=== PATIENT | male | born 1945 | race Caucasian/White ===

== ENCOUNTER 2017-11-26 07:02 | Emergency (ER) | payer MEDICARE ==
[~2017-11-26] VITALS: Ht 175.3 cm; Wt 82.6 kg
[~2017-11-26 07:02] MED LIST: ASA81 MG PO; LEVOTHYROXINE112 MCG PO; Z.0.SYNTHROID137 MCG PO
[2017-11-26 07:39] LABS: BASOPHILS % 0.6 % (0.0-1.0); EOSINOPHILS # (AUTO) 0.2 (0.0-0.4); EOSINOPHILS % 3.3 % (0.0-6.0); HEMATOCRIT 44.6 % (38.2-49.6); HEMOGLOBIN 14.9 g/dL (14.0-18.0); LYMPHOCYTES # (AUTO) 1.1 (1.0-3.2); LYMPHOCYTES % 17.4 % (18.0-39.1); MEAN CORPUSCULAR HEMOGLOBIN 28.4 pg (28-32); MEAN CORPUSCULAR HGB CONC 33.4 g/dL (31-35); MONOCYTES # (AUTO) 0.4 (0.2-0.8); MONOCYTES % 6.6 % (4.4-11.3); NEUTROPHILS # (AUTO) 4.5 (2.1-6.9); NEUTROPHILS % 71.2 % (38.7-80.0); PLATELET COUNT 191 x10e3/uL (140-360); RED BLOOD COUNT 5.25 x10e6/uL (4.3-5.7); RED CELL DISTRIBUTION WIDTH 13.6 % (11.7-14.4)
[2017-11-26] MEDS ORDERED: SODIUM CHLORIDE 0.9% 1000ML 1,000 ML IV SCH (07:45)
[2017-11-26] MEDS ORDERED: MECLIZINE HCL 12.5 MG TAB PO ONE (07:45)
[2017-11-26 07:50] LABS: BILIRUBIN,URINE NEGATIVE (NEGATIVE); CLARITY,URINE HAZY (CLEAR); COLOR,URINE YELLOW (YELLOW); KETONES,URINE NEGATIVE (NEGATIVE); LEUKOCYTE ESTERASE ,URINE NEGATIVE (NEGATIVE); NITRITE,URINE NEGATIVE (NEGATIVE); PROTEIN,URINE DIPSTICK NEGATIVE (NEGATIVE); URINE UROBILINOGEN 0.2 mg/dL (0.2 - 1)
[2017-11-26 08:13] LABS: EPITHELIAL CELLS,URINE RARE /LPF
[2017-11-26 08:20] LABS: ALANINE AMINOTRANSFERASE 14 IU/L (0-55); ALBUMIN 4.1 g/dL (3.5-5.0); ALBUMIN/GLOBULIN RATIO 1.3 (0.8-2.0); ALKALINE PHOSPHATASE 104 IU/L (40-150); ANION GAP 14.9 mmol/L (8-16); BLOOD UREA NITROGEN 19 mg/dL (7-26); BUN/CREATININE RATIO 22 (6-25); CALCIUM 9.8 mg/dL (8.4-10.2); CARBON DIOXIDE 25 mmol/L (22-29); CHLORIDE 104 mmol/L (98-107); CREATINE KINASE 38 IU/L (30-200); CREATININE, SERUM 0.87 mg/dL (0.72-1.25); EST GLOMERULAR FILTRATION RATE > 60 ML/MIN (60-); GLUCOSE 128 mg/dL (74-118); POTASSIUM 3.9 mmol/L (3.5-5.1); SODIUM 140 mmol/L (136-145)
--- NOTE | 2017-11-26 08:29 | Diagnostic Imaging Report ---
Exam: Head CT without contrast History: Trauma, fall, dizziness Comparison studies: Multiple prior head CTs which date to 11/03/2016, most recent head CT 11/03/2017. Technique: Axial images were obtained from the skull base to the vertex. Coronal and sagittal images reconstructed from the axial data. Dose modulation, iterative reconstruction, and/or weight based adjustment of the mA/kV was utilized to reduce the radiation dose to as low as reasonably achievable. Radiation dose: Total DLP: 921 mGy*cm. Estimated effective dose: DLP x 0.015 Intravenous contrast: None Findings: Scalp: No abnormalities. Bones: No fractures, blastic or lytic lesions. Brain sulci: Mildly prominent. Ventricles: Mild compensatory dilatation. No hydrocephalus. Extra-axial spaces: No masses, no fluid collection. Parenchyma: No mass, acute hemorrhage or acute or chronic cortical vascular insults. A few subtle hypodensities in the supratentorial white matter are nonspecific but may reflect chronic microvascular ischemic changes. Sellar/suprasellar region: No abnormalities. Craniocervical junction: Patent foramen magnum. No Chiari one malformation. Incidental findings: After cirrhotic calcifications in the carotid siphons and left intradural vertebral artery.. IMPRESSION: No acute abnormalities. No changes from the previous head CT of 11/03/2017. Chronic findings: 1. Mild generalized volume loss. 2. Mild microvascular ischemic changes. Signed by: Dr. Beto Cagle M.D. on 11/26/2017 8:26 AM
--- NOTE | 2017-11-26 08:31 | Diagnostic Imaging Report ---
PROCEDURE: CHEST SINGLE (PORTABLE) COMPARISON: The 11/03/2017 chest x-ray INDICATIONS: DIZZINESS FINDINGS: LUNGS: No consolidations or edema. PLEURA: No effusions or pneumothorax. HEART \T\ MEDIASTINUM: The heart is within normal size-limits. Prominent superior mediastinum unchanged. Tortuous thoracic aorta. BONES \T\ SOFT TISSUES: No acute findings. CONCLUSION: No acute thoracic abnormality. Ankur Bullock D.O. Dictated by: Ankur Bullock D.O. on 11/26/2017 at 8:38 Electronically approved by: Ankur Bullock D.O. on 11/26/2017 at 8:38
[2017-11-26 08:57] VITALS: BP 163/85
[2017-11-26] MEDS ORDERED: CLONIDINE HCL 0.1 MG TAB PO ONE (09:00)
== END 2017-11-26 09:34 | disposition home or self-care (01) ==
LOC: ER 07:02
DX: R42 Dizziness and giddiness (principal); H81.11 Benign paroxysmal vertigo, right ear
CPT/HCPCS: 36415; 70450; 71045; 80053; 81001; 82550; 82553; 82948; 84484; 85025; 93005; 99283; J7030

== ENCOUNTER 2018-07-10 12:06 | Emergency (ER) | payer MEDICARE ==
[~2018-07-10] VITALS: Ht 175.3 cm; Wt 82.6 kg
--- NOTE | 2018-07-10 13:18 | Diagnostic Imaging Report ---
EXAMINATION: CHEST 2 VIEWS INDICATION: Cough ^COUGH ^[id number] ^[id number] COMPARISON: None FINDINGS: PA and lateral views TUBES and LINES: Dual-lead pacemaker wires terminate in the right atrium and right ventricle. LUNGS: Diffuse hyperinflation suggestive of COPD. There is no evidence of pneumonia or pulmonary edema. PLEURA: No pleural effusion or pneumothorax. HEART AND MEDIASTINUM: The cardiomediastinal silhouette is unremarkable. The heart is normal in size. The aorta is tortuous. BONES AND SOFT TISSUES: No focal osseous lesions. Soft tissues are unremarkable. UPPER ABDOMEN: No free air under the diaphragm. Cholecystectomy clips in the right upper quadrant. IMPRESSION: Pulmonary hyperinflation suggestive of COPD. No acute cardiopulmonary process. Signed by: Dr. Lara Alvares MD on 07/10/2018 1:15 PM
[2018-07-10] MEDS ORDERED: ALBUTEROL/IPRATROPIUM 3 ML NEB NEB ONE (13:30)
--- NOTE | 2018-07-10 13:40 | NUR ---
PATIENT RECEIVING BREATHING TX
== END 2018-07-10 14:19 | disposition home or self-care (01) ==
LOC: ER 12:06
DX: R05 Cough (principal); J30.1 Allergic rhinitis due to pollen; J00 Acute nasopharyngitis [common cold]; E03.9 Hypothyroidism, unspecified; Z85.46 Personal history of malignant neoplasm of prostate
CPT/HCPCS: 71046; 94640; 99283

== ENCOUNTER 2018-10-05 19:12 | Emergency (ER) | payer MEDICARE ==
[~2018-10-05] VITALS: Ht 175.3 cm; Wt 82.6 kg
[2018-10-05] MEDS ORDERED: CITRATE OF MAGNESIA 300ML BOTTLE ONE (20:11)
[2018-10-05] MEDS ORDERED: LACTULOSE SYRUP 20 GM/30 ML UDC ONE (20:11)
[2018-10-05] MEDS ORDERED: LACTULOSE SYRUP 20 GM/30 ML UDC PO ONE (20:15)
[2018-10-05] MEDS ORDERED: CITRATE OF MAGNESIA 300ML BOTTLE PO ONE (20:15)
--- NOTE | 2018-10-05 22:19 | Diagnostic Imaging Report ---
EXAM: ABDOMEN-1VIEW (KUB), DATE: 10/05/2018 8:04 PM INDICATION: Constipation. COMPARISON: None FINDINGS: LINES/TUBES: None. Right atrial and right ventricular pacemaker leads. BOWEL PATTERN: No evidence for obstruction. Moderate volume of stool within the colon. SOFT TISSUES: Cholecystectomy clips with dropped clip in the pelvis. LUNG BASES: Mild patchy density in the left lung base may represent atelectasis versus pneumonia in the proper clinical setting. BONES: Multilevel degenerative changes of the lumbar spine. IMPRESSION: Moderate volume of stool within the colon. Nonobstructive bowel gas pattern. Left basilar atelectasis may represent atelectasis, scarring versus less likely pneumonia in the proper clinical setting. Signed by: Dr. Pooja Salcedo M.D. on 10/05/2018 10:15 PM
[2018-10-05 22:55] VITALS: BP 126/72
== END 2018-10-05 22:56 | disposition home or self-care (01) ==
LOC: ER 19:12
DX: K59.00 Constipation, unspecified (principal); I10 Essential (primary) hypertension; J44.9 Chronic obstructive pulmonary disease, unspecified; E03.9 Hypothyroidism, unspecified; Z95.810 Presence of automatic (implantable) cardiac defibrillator; Z79.82 Long term (current) use of aspirin; Z85.46 Personal history of malignant neoplasm of prostate
CPT/HCPCS: 74018; 99283

== ENCOUNTER 2019-01-31 09:20 | Observation (INO) | payer MEDICARE ==
[~2019-01-31] VITALS: Ht 175.3 cm; Wt 82.2 kg
[2019-01-31] MEDS ORDERED: SODIUM CHLORIDE 0.9% 500ML 500 ML IV ONE (09:45)
[2019-01-31 10:17] LABS: BASOPHILS # (AUTO) 0.1 (0.0-0.1); BASOPHILS % 0.8 % (0.0-1.0); EOSINOPHILS # (AUTO) 0.2 (0.0-0.4); EOSINOPHILS % 2.3 % (0.0-6.0); HEMATOCRIT 46.5 % (38.2-49.6); HEMOGLOBIN 15.5 g/dL (14.0-18.0); LYMPHOCYTES # (AUTO) 1.2 (1.0-3.2); LYMPHOCYTES % 15.7 % (18.0-39.1); MEAN CORPUSCULAR HEMOGLOBIN 28.4 pg (28-32); MEAN CORPUSCULAR HGB CONC 33.3 g/dL (31-35); MEAN CORPUSCULAR VOLUME 85.2 fL (81-99); MONOCYTES # (AUTO) 0.4 (0.2-0.8); MONOCYTES % 5.3 % (4.4-11.3); NEUTROPHILS # (AUTO) 5.7 (2.1-6.9); NEUTROPHILS % 75.5 % (38.7-80.0); PLATELET COUNT 244 x10e3/uL (140-360); RED BLOOD COUNT 5.46 x10e6/uL (4.3-5.7)
[2019-01-31 10:24] LABS: BILIRUBIN,URINE NEGATIVE (NEGATIVE); CLARITY,URINE CLEAR (CLEAR); COLOR,URINE YELLOW (YELLOW); KETONES,URINE NEGATIVE (NEGATIVE); LEUKOCYTE ESTERASE ,URINE NEGATIVE (NEGATIVE); NITRITE,URINE NEGATIVE (NEGATIVE); PROTEIN,URINE DIPSTICK NEGATIVE (NEGATIVE); URINE UROBILINOGEN 1 mg/dL (0.2 - 1)
--- NOTE | 2019-01-31 10:29 | Diagnostic Imaging Report ---
EXAM: CHEST SINGLE (PORTABLE) DATE: 01/31/2019 9:38 AM INDICATION: Syncope COMPARISON: 07/10/2018 FINDINGS: Dual lead left-sided pacing device identified in stable position. The trachea is midline. The lungs are symmetrically expanded without evidence for large focal consolidation, pneumothorax, or significant pleural effusion. The cardiomediastinal silhouette and pulmonary vasculature are within normal limits. No acute osseous abnormality is identified. The surrounding soft tissues are unremarkable. IMPRESSION: No acute cardiopulmonary process identified. Signed by: Dr. Aj Matias MD on 01/31/2019 10:25 AM
[2019-01-31 10:33] LABS: BACTERIA,URINE RARE /HPF; EPITHELIAL CELLS,URINE FEW /LPF; RBC,URINE 0-5 /HPF (0-5); WBC,URINE (MAN) 0-5 /HPF (0-5)
[2019-01-31 10:44] LABS: ALANINE AMINOTRANSFERASE 13 IU/L (0-55); ALBUMIN 4.5 g/dL (3.5-5.0); ALBUMIN/GLOBULIN RATIO 1.4 (0.8-2.0); ALKALINE PHOSPHATASE 97 IU/L (40-150); ANION GAP 15.2 mmol/L (8-16); BLOOD UREA NITROGEN 22 mg/dL (7-26); BUN/CREATININE RATIO 23 (6-25); CALCIUM 10.1 mg/dL (8.4-10.2); CARBON DIOXIDE 27 mmol/L (22-29); CHLORIDE 98 mmol/L (98-107); CREATINE KINASE 32 IU/L (30-200); CREATININE, SERUM 0.97 mg/dL (0.72-1.25); EST GLOMERULAR FILTRATION RATE > 60 ML/MIN (60-); GLUCOSE 113 mg/dL (74-118); MAGNESIUM 1.9 MG/DL (1.3-2.1); POTASSIUM 4.2 mmol/L (3.5-5.1); SODIUM 136 mmol/L (136-145)
[2019-01-31 11:04] LABS: THYROID STIMULATING HORMONE 2.487 uIU/mL (0.350-4.940)
[2019-01-31 11:06] LABS: INR 0.97; PROTHROMBIN TIME 13.4 seconds (11.9-14.5)
[2019-01-31 11:07] LABS: PARTIAL THROMBOPLASTIN TIME 33.1 seconds (23.8-35.5)
--- NOTE | 2019-01-31 11:19 | Diagnostic Imaging Report ---
CT BRAIN WO HISTORY: Syncope COMPARISON: Head CT 11/26/2017 Technique: Noncontrast axial scans were obtained from skull base to the vertex. Coronal and sagittal reconstructions obtained from the axial data. One or more of the following dose reduction techniques were used: Automated exposure control, adjustment of the mA and/or kV according to patient size, and/or utilization of iterative reconstruction technique. DISCUSSION: Scalp/Skull: Unremarkable. Brain sulci: Mildly prominent. Ventricles: Compensatory dilatation. Extra-axial spaces: No masses or fluid collections. Carotid and vertebral artery calcifications are present. Parenchyma: Mild bilateral deep white matter hypodensity is likely chronic microvascular ischemic change. Otherwise, no masses, hemorrhage, or large vascular territory acute infarct. Dural sinuses: No abnormal densities. Sellar/Suprasellar region: Intact. Skull base: Intact. Incidental findings: Minimal bilateral ethmoid air cell and left sphenoid sinus mucosal thickening. IMPRESSION: 1. No acute intracranial abnormalities. 2. Mild supratentorial chronic microvascular ischemic change. Mild generalized cerebral volume loss. Signed by: Dr. Jamel Zimmerman M.D. on 01/31/2019 11:16 AM
[2019-01-31] MEDS ORDERED: ONDANSETRON HCL INJ 2MG/ML 2ML 2 MG/ML VIAL IV PRN (11:30)
--- NOTE | 2019-01-31 11:56 | NUR ---
Pt sitting up in bed. RR even and unlabored. NAD noted. Vitals stable. pt on NIBP, pulse ox and cardiac monitoring. Bed locked lowest position. Call light in reach. Will continue to monitor.
[2019-01-31 13:14] LABS: CREATINE KINASE MB 2.1 ng/mL (0-5.0)
[2019-01-31] MEDS ORDERED: IOPAMIDOL 370 MG/ML 200 ML INFUS..BTL INJ ONE ×2 (15:33→18:28)
[2019-01-31] MEDS ORDERED: SODIUM CHLORIDE 0.9% 100 ML ONE ×2 (15:33→18:28)
[2019-01-31 16:00] VITALS: BP 183/89
--- NOTE | 2019-01-31 16:26 | NUR ---
RECEIVED PT FROM THE ER VIA WHEELCHAIR, NO S/S OF DISTRESS. PT ORIENTED TO ROOM AND CALL LIGHT, INSTRUCTED PT TO CALL RN FOR HELP, PT VERBALIZED UNDERSTANDING.
[2019-01-31 17:12] VITALS: BP 183/89
--- NOTE | 2019-01-31 17:25 | Diagnostic Imaging Report ---
History:Syncope Comparison studies:No prior available vascular imaging of the head or neck available for comparison. Technique: Axial images were obtained from the thoracic inlet. Coronal and sagittal images reconstructed from the axial data. Additional multiplanar MIP and volume rendered 3-D images of the [place] and carotid bulbs were reformatted from the axial source data. Dose modulation, iterative reconstruction, and/or weight based adjustment of the mA/kV was utilized to reduce the radiation dose to as low as reasonably achievable. Intravenous contrast: 100 cc of Isovue-370. Findings: Neck CTA: If present, stenosis is calculated utilizing the NASCET method which calculates the degree of stenosis with reference to the normal lumen of the carotid artery distal to the stenosis. Aortic arch and great vessels. Patent, no stenosis. Common carotid arteries: Patent, no abnormalities. Carotid bulbs: Mild calcified and soft plaque bilaterally which result in no (0%) stenosis by NASCET criteria. Internal carotid arteries: Patent, no stenosis. Mild nonstenotic calcified plaque on the right. Vertebral arteries: Patent bilaterally. Right vertebral artery is hypoplastic. Dominant left vertebral artery arises directly off the aortic arch. Intracranial CTA: No aneurysm or arterial-vascular malformation identified. Anterior circulation: Internal carotid arteries: Patent, no stenosis. Minimal nonstenotic calcified atherosclerosis, better visualized on the prior noncontrast head CT. Anterior cerebral arteries: Patent, no proximal branch occlusion or stenosis. Middle cerebral arteries: Patent, no proximal branch occlusion or stenosis. Posterior circulation: Vertebral arteries: Hypoplastic right vertebral artery is not well-visualized beyond its dural insertion. Patent left intradural V4 segment which contains minimal nonstenotic calcified atherosclerosis. Basilar artery: Patent, no abnormalities. Posterior cerebral arteries: Patent, no proximal branch occlusion or stenosis. Anatomical variants: Acom: Patent. Posterior cerebral arteries: Hypoplastic right P1 segment with patent right posterior commuting indicating artery. Left posterior commuting indicating artery is not well-visualized. Vertebral arteries: Dominant left vertebral artery with hypoplastic right vertebral artery which essentially terminates at the V3-V4 junction. Included spine: Multilevel degenerative changes in the cervical and included thoracic spine. Contiguous anterior marginal bridging osteophytes in the thoracic spine in configuration which can be seen with diffuse idiopathic skeletal hyperostosis (DISH). Mild canal stenosis at C4-C5 due to a disc bulge and mild canal stenosis at C5-C6 and C6-C7 due to disc osteophyte complexes. Varying degrees of mild to moderate multilevel foraminal stenosis in the cervical spine due to uncovertebral facet arthrosis. Incidental findings: Mild mucosal thickening or small fluid in the left sphenoid sinus and mild mucosal thickening in the right maxillary sinus. Multiple absent teeth with multiple dental fillings, prior root canals, right medial maxillary sinus as well as multiple dental care is with multifocal periodontal disease. IMPRESSION: Neck and intracranial CTA: 1. No major branch occlusion or stenosis. 2. Mild scattered atherosclerosis as described without significant stenosis. No (0%) stenosis at the carotid bulbs. 3. Anatomical variants as described which include hypoplastic right vertebral artery. Signed by: Dr. Beto Cagle M.D. on 01/31/2019 5:22 PM
[2019-01-31 19:15] VITALS: BP 141/75
--- NOTE | 2019-01-31 19:15 | NUR ---
patient received awake, alert, lying quietly in bed. no c/o pain noted. pm assessment complete. patient instructed to call for assistance when needed.
[2019-01-31 20:00] VITALS: BP 141/75
[2019-01-31 22:01] LABS: CREATINE KINASE MB 2.1 ng/mL (0-5.0)
--- NOTE | 2019-01-31 23:44 | Consultation ---
DATE OF CONSULTATION: 01/31/2019 Cardiac Consultation REASON FOR THE CONSULTATION: Near syncope. HISTORY OF PRESENT ILLNESS: This 73-year-old gentleman who is known with sick sinus syndrome status post dual pacemaker implantation on 12/16/2017 for bradycardia and near syncope and sick sinus syndrome. Since he had his pacemaker, he is doing extremely well with no symptoms at all. Recently when he had three episodes of "I am feeling, I am going to pass out." He was so alarmed about it. He came to the emergency room admitted for further management. Cardiac consultation is obtained. The patient denied having any seizure activity. He feel his "I am going to pass out." He denied having any chest pain. He denied having any shortness of breath, although he does have episodes "like reactive airway disease suddenly, but not with these three described episodes. There is no orthopnea, no paroxysmal nocturnal dyspnea. There is no palpitation. HOME MEDICATIONS: Levothyroxine 137 mcg, ProAir. ALLERGIES: NONE. PAST MEDICAL AND SURGICAL HISTORY: 1. Sick sinus syndrome status post dual pacemaker implantation in 12/16/2017. 2. Activity and diet controlled. 3. Diabetes mellitus, diet controlled. 4. Prostate problem. 5. Hypothyroidism. 6. Reactive airway disease. 7. History of prostate cancer. 8. Hand arthritis. 9. Radical prostatectomy in September 2007. 10. Cholecystectomy in 2002. 11. Right knee surgery. 12. Left knee surgery. 13. L4-L5 laminectomy. 14. Laparoscopic surgery in 2012. SOCIAL HISTORY: He has never smoked. He does not drink alcohol. He is retired school attendance secretary. He is . FAMILY HISTORY: Mother at age 70 with diabetes mellitus complication. Father at age 74 with coronary artery disease and myocardial infarction. One brother and one sister. He lost a brother with diabetes mellitus complication. No children. REVIEW OF SYSTEMS: GENERAL: No fever, no chills. HEENT: No vertigo. No headache. No vision problem. PULMONARY/CARDIAC: No active symptoms except with episodes where he will have shortness of breath. GI: No hematemesis. No melena. : No hematuria. No dysuria. MUSCULOSKELETAL: No aches. No pain. PERIPHERAL VASCULAR: None. SKIN: No skin rashes. NEUROLOGY: About three episodes of near syncope, tremor worse of the left arm. PHYSICAL EXAMINATION: VITAL SIGNS: Height 5 feet 9 inches, weight of 182 pounds, blood pressure 140/80, heart rate of 60, respiratory rate of 18. HEENT: Pupils are equal, reactive. NECK: No elevation of jugular venous pulsation. No bruit. CHEST: Clear to auscultation and percussion. HEART: PMI 5th left intercostal space. Normal first and second heart sounds. ABDOMEN: Soft with good bowel sounds. EXTREMITIES: No cyanosis, no clubbing, no edema. NEUROLOGIC: Only tremor noted more pronounced on the left upper extremity. LABORATORY DATA: Electrolytes were within normal. Sodium of 136, potassium 4.2, BUN 22, creatinine 0.97. White blood cell count of 7.5, hemoglobin of 15.5, hematocrit 46%, and platelet count of 244,000. EKG showing pacer activity. Chest CT had no acute changes. Pacemaker check showed no arrhythmias probably working pacemaker. IMPRESSION AND PLAN: 1. Near syncope. 2. Hypertension with exercise and diet controlled. 3. Hypercholesteremia. 4. Borderline diabetes mellitus. 5. Hypothyroidism. 6. Pacemaker implantation. 7. Sick sinus syndrome status post dual pacemaker implantation. From a cardiac point of view we checked already his pacemaker, which is negative. The patient will be admitted. He will be on telemetry. Neurological consultation will be beneficial. CT angiogram of the head and neck is ordered. We will follow the patient's progression with you and would like to thank you for the kind referral. MD DAIJA Goodman/KRISTI /[id number]
[2019-02-01] VITALS: BP 102/67
[2019-02-01 04:00] VITALS: BP 134/81
[2019-02-01 06:10] LABS: BASOPHILS # (AUTO) 0.1 (0.0-0.1); BASOPHILS % 0.9 % (0.0-1.0); EOSINOPHILS # (AUTO) 0.2 (0.0-0.4); HEMATOCRIT 44.7 % (38.2-49.6); HEMOGLOBIN 14.9 g/dL (14.0-18.0); LYMPHOCYTES # (AUTO) 1.3 (1.0-3.2); LYMPHOCYTES % 23.1 % (18.0-39.1); MEAN CORPUSCULAR HEMOGLOBIN 28.3 pg (28-32); MEAN CORPUSCULAR HGB CONC 33.3 g/dL (31-35); MONOCYTES # (AUTO) 0.4 (0.2-0.8); MONOCYTES % 6.6 % (4.4-11.3); NEUTROPHILS # (AUTO) 3.8 (2.1-6.9); NEUTROPHILS % 64.9 % (38.7-80.0); PLATELET COUNT 183 x10e3/uL (140-360); RED BLOOD COUNT 5.26 x10e6/uL (4.3-5.7); RED CELL DISTRIBUTION WIDTH 13.8 % (11.7-14.4)
[2019-02-01 06:35] LABS: ALANINE AMINOTRANSFERASE 12 IU/L (0-55); ALBUMIN 3.8 g/dL (3.5-5.0); ALBUMIN/GLOBULIN RATIO 1.2 (0.8-2.0); ALKALINE PHOSPHATASE 81 IU/L (40-150); ANION GAP 12.2 mmol/L (8-16); BLOOD UREA NITROGEN 18 mg/dL (7-26); BUN/CREATININE RATIO 20 (6-25); CALCIUM 9.7 mg/dL (8.4-10.2); CARBON DIOXIDE 26 mmol/L (22-29); CHLORIDE 100 mmol/L (98-107); CHOL/HDL RATIO 5.8 (3.9-4.7); CHOLESTEROL 168 MD/DL (0-199); CREATININE, SERUM 0.92 mg/dL (0.72-1.25); EST GLOMERULAR FILTRATION RATE > 60 ML/MIN (60-); GLUCOSE 120 mg/dL (74-118); HDL CHOLESTEROL 29 MG/DL (40-60); LDL CHOLESTEROL 121 MG/DL (60-130); POTASSIUM 4.2 mmol/L (3.5-5.1); SODIUM 134 mmol/L (136-145); TRIGLYCERIDES 90 MG/DL (0-149)
[2019-02-01 07:07] LABS: CREATINE KINASE MB 3.2 ng/mL (0-5.0)
[2019-02-01 08:32] VITALS: BP 134/81
[2019-02-01 11:14] VITALS: BP 112/73
[2019-02-01] MEDS ORDERED: MECLIZINE HCL 12.5 MG TAB PO SCH (12:30)
[2019-02-01] MEDS ORDERED: MECLIZINE HCL12.5 MG PO (14:22)
--- NOTE | 2019-02-01 14:49 | NUR ---
Patient discharged home, Dr Castrejon had rounds cleared patient to go home, IV canula removed with tip intact, no ss of infiltration, tele box returned. prescription given, denies any pain, No C/O Dizziness or SOB, Refused wheelchair, escorted to walk up to his car.
--- NOTE | 2019-02-02 09:32 | Discharge Summary ---
CONSULTING PHYSICIAN: Shmuel Castrejon M.D. CHIEF COMPLAINT: Near syncope. HOSPITAL COURSE: This is a 73-year-old male with sick sinus syndrome, status post dual pacemaker implantation on 12/16/2017 for bradycardia, near syncope, and sick sinus syndrome. Since the pacemaker placement, the patient has been doing well with no acute issues. Most recently, the patient started developing dizziness, which for the past 1 week he had three different episodes, but never lost consciousness. The patient also reported several years ago he got evaluated for vertigo and has diagnosed with benign paroxysmal positional vertigo and has taken meclizine. The patient got evaluated by Cardiology and his pacemaker was checked, which was negative. His CT angiogram of the head and the neck are negative and CT of the brain is negative. The patient also got evaluated by Therapy and he is ambulatory with requiring no assistive device. His vital signs; temperature is 96.3, heart rate is 65, blood pressure is 112/73, respiratory rate is 18, and oxygen saturation is 99%. MEDICATIONS: We will resume the home medications and added meclizine 12.5 mg p.o. daily as needed for dizziness. LABORATORY DATA: Sodium is 134, potassium is 4.2, chloride is 100, CO2 is 26, BUN 18, creatinine 0.92, and glucose is 120. WBC is 5.79, hemoglobin is 14.9, hematocrit is 44.7, and platelet is 183. PHYSICAL EXAMINATION: ENT: Pupils equal, round, reactive to light. NECK: Supple. CHEST: Clear to auscultation, normal symmetry and expansion. CARDIAC: Regular rate and rhythm. ABDOMEN: Nontender, soft, normal bowel sounds. EXTREMITIES: No edema. SKIN: No rash. NEUROLOGIC: Cranial nerves intact. Alert and oriented x3. PSYCHIATRIC: Anxious to go home. DIAGNOSES: 1. Near syncope. We will send the patient on meclizine and advice to follow up with Neurology as an outpatient. 2. Hypertension, not currently on any medication. 3. Hypercholesterolemia. 4. Hypothyroidism. 5. Pacemaker implantation. Upon discharge, the patient is stable, ambulatory, alert and oriented x3. Advice to follow up with primary care physician in 1 week and Neurology as outpatient. Dictated by Steph Mcmahon NP MD LIAM Cordova/KRISTI /[id number]
== END 2019-02-01 14:35 | disposition home or self-care (01) ==
LOC: ER 09:20 → ERHOLD 11:19 → MED/SURG3 16:43
PROVIDERS: ADMIT Internal Medicine; ATTEND Internal Medicine
DX: R55 Syncope and collapse (principal); I10 Essential (primary) hypertension; J44.9 Chronic obstructive pulmonary disease, unspecified; E03.9 Hypothyroidism, unspecified; Z85.46 Personal history of malignant neoplasm of prostate; Z82.49 Family history of ischemic heart disease and other diseases of the circulatory system; E78.00 Pure hypercholesterolemia, unspecified; E11.9 Type 2 diabetes mellitus without complications; I49.5 Sick sinus syndrome; Z95.810 Presence of automatic (implantable) cardiac defibrillator
CPT/HCPCS: 36415 ×2; 70450; 70496; 70498; 71045; 80053 ×2; 80061; 81001; 82550 ×2; 82553 ×2; 83735; 83880; 84443; 84484 ×2; 85025 ×2; 85610; 85730; 87086; 93005; 93880; 97161; 99284; G0378 ×2; J7040; J7050; J8597; Q9967

== ENCOUNTER 2019-09-11 08:55 | Emergency (ER) | payer MEDICARE ==
[~2019-09-11] VITALS: Ht 175.3 cm; Wt 84.4 kg
[~2019-09-11 08:55] MED LIST changes: +MECLIZINE HCL12.5 MG PO
--- NOTE | 2019-09-11 09:07 | Emergency Department Note ---
History of Present Illnes History of Present Illness History of Present Illness This is a 74 year old male with 5 week h/o of abdominal distension . Historian: Patient Arrival Mode: Car Onset (how long ago): week(s) (5) Radiation: Reports abdomen Severity: moderate Onset quality: gradual Duration (how long): week(s) (5) Timing of current episode: constant Progression: worsening Chronicity: new Context: Denies recent illness, Denies recent surgery, Denies recent imm obilization, Denies recent travel, Denies trauma/injury, Denies new medications, Denies hx of DVT/PE, Denies non-compliance w/ medications, Denies other Relieving factors: none Exacerbating factors: none Associated symptoms: Reports loss of appetite Treatments prior to arrival: none Past Medical/Family History Physician Review I have reviewed the patient's past medical and family history. Any updates have been documented here. Past Medical History Recent Fever: No Clinical Suspicion of Infectio: No New/Unexplained Change in Ment: No Past Medical History: Hypertension, COPD, Hypothyroidism, Cancer Other Medical History: TINNITIS Past Surgical History: Cholecysctectomy, Pacer/AICD Other Surgery: PROSTECTOMY, LAMINECTOMY (L4-L5), L KNEE ACL REPAIR Social History Smoking Cessation: Never Smoker Alcohol Use: None Any Illegal Drug Use: No Other Last Tetanus: UTD Review of Systems Review of Systems Constitutional: Denies fever EENTM: Reports no symptoms Cardiovascular: Reports no symptoms Respiratory: Reports no symptoms Gastrointestinal: Reports abdominal pain, Reports constipation; Denies nausea, Denies vomiting Genitourinary: Reports no symptoms Musculoskeletal: Reports no symptoms Integumentary: Reports no symptoms Neurological: Reports no symptoms Psychological: Reports no symptoms Endocrine: Reports no symptoms Hematological/Lymphatic: Reports no symptoms Physical Exam Related Data Allergies: Coded Allergies: No Known Allergies (Unverified , 01/31/19) Triage Vital Signs Vital Signs Date Time Temp Pulse Resp B/P (MAP) Pulse Ox O2 Delivery O2 Flow Rate FiO2 09/11/19 09:10 98.2 75 18 164/92 98 Room Air Vital signs reviewed: Yes Physical Exam CONSTITUTIONAL Constitutional: Present well-developed, Present well-nourished HENT HENT: Present normocephalic, Present atraumatic, Present oropharynx clear/moist, Present nose normal HENT L/R: Present left ext ear normal, Present right ext ear normal EYES Eyes: Reports PERRL, Reports conjunctivae normal NECK Neck: Present ROM normal PULMONARY Pulmonary: Present effort normal, Present breath sounds normal CARDIOVASCULAR Cardiovascular: Present regular rhythm, Present heart sounds normal, Present capillary refill normal, Present normal rate GASTROINTESTINAL Abdominal: Present soft, Present nontender, Present distension GENITOURINARY Genitourinary: Present exam deferred SKIN Skin: Present warm, Present dry MUSCULOSKELETAL Musculoskeletal: Present ROM normal NEUROLOGICAL Neurological: Present alert, Present oriented x 3, Present no gross motor or sensory deficits PSYCHOLOGICAL Psychological: Present mood/affect normal, Present judgement normal Results Laboratory Lab results reviewed: Yes Laboratory comments Laboratory Tests Test 09/11/19 09:16 White Blood Count 7.19 x10e3/uL (4.8-10.8) Red Blood Count 5.59 x10e6/uL (4.3-5.7) Hemoglobin 15.6 g/dL (14.0-18.0) Hematocrit 46.5 % (38.2-49.6) Mean Corpuscular Volume 83.2 fL (81-99) Mean Corpuscular Hemoglobin 27.9 pg (28-32) Mean Corpuscular Hemoglobin Concent 33.5 g/dL (31-35) Red Cell Distribution Width 14.0 % (11.7-14.4) Platelet Count 239 x10e3/uL (140-360) Neutrophils (%) (Auto) 70.6 % (38.7-80.0) Lymphocytes (%) (Auto) 19.6 % (18.0-39.1) Monocytes (%) (Auto) 5.7 % (4.4-11.3) Eosinophils (%) (Auto) 2.6 % (0.0-6.0) Basophils (%) (Auto) 0.7 % (0.0-1.0) Neutrophils # (Auto) 5.1 (2.1-6.9) Lymphocytes # (Auto) 1.4 (1.0-3.2) Monocytes # (Auto) 0.4 (0.2-0.8) Eosinophils # (Auto) 0.2 (0.0-0.4) Basophils # (Auto) 0.1 (0.0-0.1) Absolute Immature Granulocyte (auto 0.06 x10e3/uL (0-0.1) Urine Color Yellow (YELLOW) Urine Clarity Clear (CLEAR) Urine pH 5.5 (5 - 7) Urine Specific [place] >=1.030 (1.010-1.025) Urine Protein Negative (NEGATIVE) Urine Glucose (UA) Negative (NEGATIVE) Urine Ketones Negative (NEGATIVE) Urine Blood Negative (NEGATIVE) Urine Nitrite Negative (NEGATIVE) Urine Bilirubin Small (NEGATIVE) Urine Urobilinogen 1 mg/dL (0.2 - 1) Urine Leukocyte Esterase Negative (NEGATIVE) Urine RBC 0-5 /HPF (0-5) Urine WBC 0-5 /HPF (0-5) Urine Epithelial Cells Rare /LPF (NONE) Urine Transitional Epithelial Cells Few (NONE) Urine Bacteria Many /HPF (NONE) Urine Mucus Many (RARE) Sodium Level 139 mmol/L (136-145) Potassium Level 4.2 mmol/L (3.5-5.1) Chloride Level 103 mmol/L (98-107) Carbon Dioxide Level 27 mmol/L (22-29) Anion Gap 13.2 mmol/L (8-16) Blood Urea Nitrogen 19 mg/dL (7-26) Creatinine 0.99 mg/dL (0.72-1.25) Estimat Glomerular Filtration Rate > 60 ML/MIN (60-) BUN/Creatinine Ratio 19 (6-25) Glucose Level 123 mg/dL (74-118) Calcium Level 9.9 mg/dL (8.4-10.2) Total Bilirubin 0.8 mg/dL (0.2-1.2) Aspartate Amino Transf (AST/SGOT) 18 IU/L (5-34) Alanine Aminotransferase (ALT/SGPT) 13 IU/L (0-55) Alkaline Phosphatase 102 IU/L (40-150) Creatine Kinase 45 IU/L (30-200) Creatine Kinase MB 2.90 ng/mL (0-5.0) Troponin I 0.002 ng/mL (0-0.300) B-Type Natriuretic Peptide < 10.0 pg/mL (0-100) Total Protein 7.7 g/dL (6.5-8.1) Albumin 4.3 g/dL (3.5-5.0) Globulin 3.4 g/dL (2.3-3.5) Albumin/Globulin Ratio 1.3 (0.8-2.0) Lipase 15 U/L (8-78) Imaging Imaging results reviewed: Yes Impressions [facility] [address] [address] Patient Name: YADIEL DANGELO MR #: [id number] : 1945 Age/Sex: 74/M Req #: [id number] Adm Physician: Ordered by: STEFANY VÁSQUEZ DO Report #: [id number] Location: ER Room/Bed: Procedure: [id number] CT/CT ABDOMEN/PELVIS W Exam Date: 09/11/19 Exam Time: 1030 REPORT STATUS: Signed EXAM: CT Abdomen and Pelvis WITH intravenous contrast INDICATION: Abdominal pain COMPARISON: None. TECHNIQUE: Abdomen and pelvis were scanned utilizing a multidetector helical scanner from the lung base to the pubic symphysis after administration of IV contrast. Coronal and sagittal reformations were obtained. Routine protocol was performed. Scan was performed during portal venous phase. IV CONTRAST: 100mL of Isovue 370 ORAL CONTRAST: Water RADIATION DOSE: Total DLP: 432 mGy*cm Dose modulation, iterative reconstruction, and/or weight based adjustment of the mA/kV was utilized to reduce the radiation dose to as low as reasonably achievable. FINDINGS: LOWER THORAX: Normal. HEPATOBILIARY: No focal liver lesions. Mild intrahepatic biliary ductal dilation, possibly due to reservoir effect status post cholecystectomy. SPLEEN: No splenomegaly. PANCREAS: No focal masses or ductal dilatation. ADRENALS: No adrenal nodules. KIDNEYS/URETERS: No hydronephrosis, stones, or solid mass lesions. PELVIC ORGANS/BLADDER: Unremarkable. PERITONEUM / RETROPERITONEUM: No free air or fluid. LYMPH NODES: No lymphadenopathy. VESSELS: Unremarkable. GI TRACT: No abnormal bowel thickening. No bowel obstruction. Normal appendix. BONES AND SOFT TISSUES: No acute osseous injury. No suspicious lytic or blastic lesions. Degenerative changes of the visualized spine. IMPRESSION: No acute findings in the abdomen or pelvis. Mild intrahepatic biliary ductal dilation, possibly due to reservoir effect status post cholecystectomy. Signed by: Renzo Stewart MD on 09/11/2019 12:02 PM Dictated By: RENZO STEWART MD 120 Transcribed By: SORAYA on 09/11/19 120 COPY TO: STEFANY VÁSQUEZ DO~ Procedures 12 Lead ECG Interpretation ECG Interpretation : ECG: ECG 1 Plug Grower: Interpreted by ED physician Date: Sep 11, 2019 Time: 09:24 Prior ECG tracings: reviewed Rhythm: sinus rhythm Ectopy: PJC's Rate: normal QRS axis: normal Conduction: 1st degree ST segments normal: Yes T waves normal: Yes Clinical Impression: normal ECG Assessment & Plan Medical Decision Making MDM 74 yom with abdominal pain. CBC, CMP, UA, EKG, and CTS ordered to r/o appendicitis, diverticulitis, UTI, kidney stone, perforated viscus, obstruction, ischemia, biliary pathology, unstable angina, and cancer Assessment & Plan Final Impression: (1) Abdominal pain Depart Disposition: HOME, SELF-FPC Meds Active Scripts Meclizine Hcl (MECLIZINE HCL) 12.5 Mg Tablet, 12.5 MG PO DAILY for 10 Days, #10 TAB Prov:OLI ZAMUDIO NP 02/01/19 Reported Medications Levothyroxine Sodium (LEVOTHYROXINE SODIUM) 112 Mcg Tablet, 150 MCG PO DAILY, #30 TAB 11/15/15 Aspirin (Asa) 81 Mg Tab, 81 MG PO daily 01/08/11 STEFANY VÁSQUEZ DO Sep 11, 2019 09:07
[2019-09-11] MEDS ORDERED: SODIUM CHLORIDE 0.9% 1000ML 1,000 ML IV STA (09:11)
[2019-09-11 09:31] LABS: BASOPHILS # (AUTO) 0.1 (0.0-0.1); BASOPHILS % 0.7 % (0.0-1.0); EOSINOPHILS # (AUTO) 0.2 (0.0-0.4); EOSINOPHILS % 2.6 % (0.0-6.0); HEMATOCRIT 46.5 % (38.2-49.6); HEMOGLOBIN 15.6 g/dL (14.0-18.0); LYMPHOCYTES # (AUTO) 1.4 (1.0-3.2); LYMPHOCYTES % 19.6 % (18.0-39.1); MEAN CORPUSCULAR HEMOGLOBIN 27.9 pg (28-32); MEAN CORPUSCULAR HGB CONC 33.5 g/dL (31-35); MEAN CORPUSCULAR VOLUME 83.2 fL (81-99); MONOCYTES # (AUTO) 0.4 (0.2-0.8); MONOCYTES % 5.7 % (4.4-11.3); NEUTROPHILS # (AUTO) 5.1 (2.1-6.9); NEUTROPHILS % 70.6 % (38.7-80.0); PLATELET COUNT 239 x10e3/uL (140-360); RED BLOOD COUNT 5.59 x10e6/uL (4.3-5.7)
[2019-09-11 09:57] LABS: ALANINE AMINOTRANSFERASE 13 IU/L (0-55); ALBUMIN 4.3 g/dL (3.5-5.0); ALBUMIN/GLOBULIN RATIO 1.3 (0.8-2.0); ALKALINE PHOSPHATASE 102 IU/L (40-150); ANION GAP 13.2 mmol/L (8-16); BLOOD UREA NITROGEN 19 mg/dL (7-26); BUN/CREATININE RATIO 19 (6-25); CALCIUM 9.9 mg/dL (8.4-10.2); CARBON DIOXIDE 27 mmol/L (22-29); CHLORIDE 103 mmol/L (98-107); CREATININE, SERUM 0.99 mg/dL (0.72-1.25); EST GLOMERULAR FILTRATION RATE > 60 ML/MIN (60-); GLUCOSE 123 mg/dL (74-118); POTASSIUM 4.2 mmol/L (3.5-5.1); SODIUM 139 mmol/L (136-145)
[2019-09-11 10:04] LABS: CLARITY,URINE CLEAR (CLEAR); COLOR,URINE YELLOW (YELLOW); LEUKOCYTE ESTERASE ,URINE NEGATIVE (NEGATIVE); NITRITE,URINE NEGATIVE (NEGATIVE); PROTEIN,URINE DIPSTICK NEGATIVE (NEGATIVE)
[2019-09-11 10:05] LABS: BILIRUBIN,URINE SMALL (NEGATIVE); KETONES,URINE NEGATIVE (NEGATIVE); URINE UROBILINOGEN 1 mg/dL (0.2 - 1)
[2019-09-11 10:12] LABS: CREATINE KINASE 45 IU/L (30-200); LIPASE 15 U/L (8-78)
[2019-09-11 10:24] LABS: BACTERIA,URINE MANY /HPF; EPITHELIAL CELLS,URINE RARE /LPF; MUCUS,URINE MANY (RARE); RBC,URINE 0-5 /HPF (0-5); TRANSITIONAL EPI CELLS,URINE FEW; WBC,URINE (MAN) 0-5 /HPF (0-5)
[2019-09-11] MEDS ORDERED: IOPAMIDOL 370 MG/ML 200 ML INFUS..BTL INJ ONE (10:37)
[2019-09-11] MEDS ORDERED: SODIUM CHLORIDE 0.9% 50ML 50 ML ONE (10:37)
--- NOTE | 2019-09-11 12:06 | Diagnostic Imaging Report ---
EXAM: CT Abdomen and Pelvis WITH intravenous contrast INDICATION: Abdominal pain COMPARISON: None. TECHNIQUE: Abdomen and pelvis were scanned utilizing a multidetector helical scanner from the lung base to the pubic symphysis after administration of IV contrast. Coronal and sagittal reformations were obtained. Routine protocol was performed. Scan was performed during portal venous phase. IV CONTRAST: 100mL of Isovue 370 ORAL CONTRAST: Water RADIATION DOSE: Total DLP: 432 mGy*cm Dose modulation, iterative reconstruction, and/or weight based adjustment of the mA/kV was utilized to reduce the radiation dose to as low as reasonably achievable. FINDINGS: LOWER THORAX: Normal. HEPATOBILIARY: No focal liver lesions. Mild intrahepatic biliary ductal dilation, possibly due to reservoir effect status post cholecystectomy. SPLEEN: No splenomegaly. PANCREAS: No focal masses or ductal dilatation. ADRENALS: No adrenal nodules. KIDNEYS/URETERS: No hydronephrosis, stones, or solid mass lesions. PELVIC ORGANS/BLADDER: Unremarkable. PERITONEUM / RETROPERITONEUM: No free air or fluid. LYMPH NODES: No lymphadenopathy. VESSELS: Unremarkable. GI TRACT: No abnormal bowel thickening. No bowel obstruction. Normal appendix. BONES AND SOFT TISSUES: No acute osseous injury. No suspicious lytic or blastic lesions. Degenerative changes of the visualized spine. IMPRESSION: No acute findings in the abdomen or pelvis. Mild intrahepatic biliary ductal dilation, possibly due to reservoir effect status post cholecystectomy. Signed by: Laurel Solomon MD on 09/11/2019 12:02 PM
== END 2019-09-11 12:39 | disposition home or self-care (01) ==
LOC: ER 09:10
DX: R10.9 Unspecified abdominal pain (principal); R14.0 Abdominal distension (gaseous); I10 Essential (primary) hypertension; J44.9 Chronic obstructive pulmonary disease, unspecified; E03.9 Hypothyroidism, unspecified; Z95.810 Presence of automatic (implantable) cardiac defibrillator; Z90.49 Acquired absence of other specified parts of digestive tract
CPT/HCPCS: 36415; 74177; 80053; 81001; 82550; 82553; 83690; 83880; 84484; 85025; 93005; 99283; J7030; Q9967

== ENCOUNTER 2020-01-02 10:23 | Emergency (ER) | payer MEDICARE ==
[~2020-01-02] VITALS: Ht 175.3 cm; Wt 84.4 kg
--- NOTE | 2020-01-02 10:47 | Emergency Department Note ---
History of Present Illnes History of Present Illness Chief Complaint: Laceration History of Present Illness This is a 74 year old male arrived to the ED with concerns of a abras ion over his left forearm after talking closet. Patient states it happened 3 or 4 days ago but is worried about potential infection. . Chief Complaint Comment PATIENT IN FROM HOME WITH COMPLAINTS OF SMALL SKIN TEAR TO LEFT FOREARM. NO BLEEDING NOTED, NO REDNESS OR SWELLING. PATIENT STATES THAT HE IS CONCERNED THAT IT MAY BE GETTING INFECTED. DENIES PAIN AT THIS TIME. PATIENT ALERT AND ORIENTED, RESP EVEN AND NONLABORED, APPEARS IN NO DISTRESS Historian: Patient Arrival Mode: Car Onset (how long ago): day(s) Radiation: Reports non-radiation Severity: mild Onset quality: gradual Duration (how long): day(s) Timing of current episode: intermittent Progression: unchanged Chronicity: new Context: Reports trauma/injury Relieving factors: none Exacerbating factors: none Past Medical/Family History Physician Review I have reviewed the patient's past medical and family history. Any updates have been documented here. Past Medical History Recent Fever: No Clinical Suspicion of Infectio: No New/Unexplained Change in Ment: No Past Medical History: Hypertension, COPD, Hypothyroidism, Cancer Other Medical History: TINNITIS Past Surgical History: Cholecysctectomy, Pacer/AICD Other Surgery: PROSTECTOMY, LAMINECTOMY (L4-L5), L KNEE ACL REPAIR Social History Smoking Cessation: Never Smoker Counseling Performed: No Alcohol Use: None Any Illegal Drug Use: No Physically hurt or threatened: No Other Last Tetanus: UTD Any Pre-Existing Lines (PICC,: No Review of Systems Review of Systems Constitutional: Reports no symptoms EENTM: Reports no symptoms Cardiovascular: Reports no symptoms Respiratory: Reports no symptoms Gastrointestinal: Reports no symptoms Genitourinary: Reports no symptoms Musculoskeletal: Reports no symptoms Integumentary: Reports as per HPI Neurological: Reports no symptoms Psychological: Reports no symptoms Endocrine: Reports no symptoms Hematological/Lymphatic: Reports no symptoms Physical Exam Related Data Allergies: Coded Allergies: No Known Allergies (Unverified , 01/02/20) Triage Vital Signs Vital Signs Date Time Temp Pulse Resp B/P (MAP) Pulse Ox O2 Delivery O2 Flow Rate FiO2 01/02/20 10:30 97.6 71 20 173/91 100 Room Air Vital signs reviewed: Yes Physical Exam CONSTITUTIONAL Constitutional: Present well-developed, Present well-nourished HENT HENT: Present normocephalic, Present atraumatic, Present oropharynx clear/moist, Present nose normal HENT L/R: Present left ext ear normal, Present right ext ear normal EYES Eyes: Reports PERRL, Reports conjunctivae normal NECK Neck: Present ROM normal PULMONARY Pulmonary: Present effort normal, Present breath sounds normal CARDIOVASCULAR Cardiovascular: Present regular rhythm, Present heart sounds normal, Present capillary refill normal, Present normal rate GASTROINTESTINAL Abdominal: Present soft, Present nontender, Present bowel sounds normal GENITOURINARY Genitourinary: Present exam deferred SKIN Skin: Present warm, Present dry, Present other (superficial skin tear noted ov er left forearm, no active bleeding, no discharge, no signs of infection) MUSCULOSKELETAL Musculoskeletal: Present ROM normal NEUROLOGICAL Neurological: Present alert, Present oriented x 3, Present no gross motor or sensory deficits PSYCHOLOGICAL Psychological: Present mood/affect normal, Present judgement normal Assessment & Plan Medical Decision Making MDM 74-year-old male arrives to the ED with superficial skin tear over left forearm, no signs of infection. Dermabond applied patient stable for discharge Assessment & Plan Final Impression: (1) Skin tear of left upper extremity Depart Disposition: HOME, SELF-CARE Last Vital Signs Date Time Temp Pulse Resp B/P (MAP) Pulse Ox O2 Delivery O2 Flow Rate FiO2 01/02/20 10:30 97.6 71 20 173/91 100 Room Air Home Meds Active Scripts Meclizine Hcl (MECLIZINE HCL) 12.5 Mg Tablet, 12.5 MG PO DAILY for 10 Days, #10 TAB Prov:OLI ZAMUDIO NP 02/01/19 Reported Medications Levothyroxine Sodium (LEVOTHYROXINE SODIUM) 112 Mcg Tablet, 150 MCG PO DAILY, #30 TAB 11/15/15 Aspirin (Asa) 81 Mg Tab, 81 MG PO daily 01/08/11 SPENCER DAY DO Jan 02, 2020 10:47
--- OUTSIDE RECORDS SUMMARY | 2020-01-04 19:02 | XMS REPORT | Continuity of Care Document ---
Author Author [facility] t Organization [facility] Address [address] [place] [address] Phone Unavailable Care Team Providers Care [employer] Ranger Name Role Phone MD JUAN FRANCISCO IRFAN PCP STEFANY VÁSQUEZ Attphys Unavailable YADIEL MEDINA Attphys Unavailable Sugar STEELE Attphys Unavailable MANEEVESE, V JAXSON Attphys Unavailable Mar EARL Attphys Unavailable YADIEL MEDINA Admphys Unavailable Payers Payer Name Policy Type Policy Number Effective Date Expiration Date franco Medicare A & B [id number] 2009 00:00:00 [facility] Problems Condition Name Condition Details Condition Category Status Onset Date Resolution Date Last Treatment Date Treating Clinician Comments Source Altered mental status Change in mental status Problem Active [facility] Pre-syncope Near syncope Problem Active [facility] Urinary tract infection Problem Active [facility] Allergies, Adverse Reactions, Alerts Allergy Name Allergy Type Status Severity Reaction(s) Onset Date Inacti ve Date Treating Clinician Comments Source No Known Allergies DA Active U 2017-12-16 00:00:00 [facility] No Known Drug Intolerances DA Active U 2007-10-12 00:00:0 0 [facility] No Known Contrast Allergies DA Active U 2007-10-12 00:00: 00 [facility] No Known Drug Allergies DA Active U 2007-10-12 00:00:00 [facility] No Known Food Allergies DA Active U 2007-10-12 00:00:00 [facility] No Known Other Allergies DA Active U 2007-10-12 00:00:00 [facility] Social History Social Habit Start Date Stop Date Quantity Comments Source Sex Assigned At 1945 00:00:00 1945 00:00:00 Male [facility] Medications Ordered Medication Name Filled Medication Name Start Date Stop Da te Current Medication? Ordering Clinician Indication Dosage Frequency Signature (SIG) Comments Components Source Meclizine Hcl Meclizine Hcl 2019-02-01 13:22:00 Yes 12.5 Daily [facility] Aspirin (Asa) 81 Mg TAB Aspirin (Asa) 81 Mg TAB Yes 81 Daily [facility] Levothyroxine Sodium Levothyroxine Sodium Yes 150 Daily [facility] Levothyroxine Sodium (Synthroid) 137 Mcg TABLET Levoth yroxine Sodium (Synthroid) 137 Mcg TABLET 2015-11-15 00:00:00 No 137 Daily [facility] Vital Signs Vital Name Observation Time Observation Value Comments Source Weight 2019-09-11 09:10:00 186 [lb_av] [facility] BMI (Body Mass Index) 2019-09-11 09:10:00 27.5 kg/m2 [facility] Body Temperature 2019-02-01 10:14:00 96.3 [degF] [facility] Procedures Procedure Date / Time Performed Performing Clinician Eleni king Computed tomography of abdomen and pelvis with contrast 00:00:00 [facility] Computed tomography of brain without radiopaque contrast 201 11-10-02 00:00:00 CATHIE STEELE [facility] Computed tomography angiography of brain 2019-01-31 00:00:00 APOLONIA LYN [facility] CT angiography of neck 2019-01-31 00:00:00 APOLONIADAYRONMARY [facility] Plan of Care Planned Activity Planned Date Details Comments Source Instructions Abdominal Pain - Adult [facility] Encounters Start Date/Time End Date/Time Encounter Type Admission Type [facility] Care Department Encounter ID Source 2019-09-11 09:10:00 2019-09-11 12:39:00 Departed Emergency Room 1 STEFANY VÁSQUEZ [facility] [id number] [facility] 2019-01-31 10:19:00 2019-02-01 13:35:00 Discharged Inpatient (obs) 1 ADAM YADIEL [facility] [id number] [facility] 2018-10-05 19:12:00 2018-10-05 22:56:00 Departed Emergency Room 1 CATHIE STEELE [facility] [id number] [facility] 2018-07-10 12:06:00 2018-07-10 14:19:00 Departed Emergency Room 1 CATHIE STEELE [facility] [id number] [facility] 2017-11-26 07:02:00 2017-11-26 09:34:00 Departed Emergency Room 1 JAXSON GALINDO [facility] [id number] [facility] 2017-11-03 06:00:00 2017-11-03 07:50:00 Departed Emergency Room 1 EARL LUCA [facility] [id number] [facility] Results Test Description Test Time Test Comments Results Result Comments Source - CT ABDOMEN W WO CONT 2019-10-02 13:21:00 Brayden e: YADIEL DANGELO [facility] : 1945 Age/S: 74 / M [address] [facility] Unit #: [id number] Loc: [place] [address] Phys: Rell Peacock MD Acct: [id number] Dis Date: Status: REG CLI PHONE #: [phone] Exam Date: 10/02/2019 0958 FAX #: [phone] Reason: PANCREATIC PROTOCOL EXAMS: CPT CODE: [id number] CT ABDOMEN W WO CONT [id number] REASON FOR EXAM: PANCREATIC PROTOCOL EXAM ORDER DATE: 10/02/2019 9:36 AM Ordering M.D.: Rell Peacock MD PROCEDURE: Axial CT images were acquired through the abdomen at 5 mm intervals. Sagittal and coronal reformatted images were generated. Automated exposure control was utilized for this reduction. Phases of contrast: Arterial, venous and delayed. Precontrast images of the abdomen and pelvis were also obtained COMPARISON: None FINDINGS: Visualized thorax: Normal Hepatobiliary system: Prior cholecystectomy. The intrahepatic bile ducts and the common bile duct are distended, likely postsurgical. Hepatic parenchyma is within normal limits Pancreas: Atrophic. However no masses are seen and there is no abnormal enhancement Spleen: Normal Adrenal glands: Normal Kidneys and ureters: Normal Visualized gastrointestinal tract: Small hiatal hernia. Otherwise normal Abdominal vascular structures: Atherosclerotic calcifications are scattered throughout the abdominal aorta and iliac arteries Peritoneum and retroperitoneum: No free fluid or free air. No omental or mesenteric masses. No abnormal lymph nodes. Musculoskeletal structures and abdominal wall: Degenerative changes are present in the spine. Fat-containing umbilical hernia is p resent IMPRESSION: PAGE 1 Signed Report (CONTINUED) Name: YADIEL DANGELO [facility] : 1945 Age/S: 74 / M [address] [facility] Unit #: [id number] Loc: [place] [address] Phys: Rell Peacock MD Acct: [id number] Dis Date: Status: REG CLI PHONE #: [phone] Exam Date: 10/02/2019 0958 FAX #: [phone] Reason: PANCREATIC PROTOCOL EXAMS: CPT CODE: [id number] CT ABDOMEN W WO CONT 43082 <Continued> No visualized pancreatic masses. Dilation of the intra and extrahepatic bile ducts may be physiologic response to the patient's prior surgery as well as partly attributed to the patient's age. Location: [facility] at 1321 Reported and signed by: Dragan Breaux MD CC: Rell Peacock MD Technologist:Kentrell Montelongo RT(R),(MR),(CT); CTDI: DLP: Trnscb Date/Time: 10/02/2019 (1321) [id number] Orig Print D/T: S: 10/02/2019 (8820) PAGE 2 Signed Report CREATININE W ESTIMATED GFR 2019-10-02 09:16:00 Test Item BEDSIDE CREATININE (test code = CREATBED) mg/dL 0.7-1.3 N GLOMERULAR FILTRATION RATE POC (test code = GFRBED) 69 >6 0 H CREATININE W ESTIMATED [id number] 09:16:00* Test Item Value Reference Range Interpretation Comments BEDSIDE CREATININE (test code = CREATBED) 1.05 mg/dL 0.7-1.3 N GLOMERULAR FILTRATION RATE POC (test code = GFRBED) > 60 >6 0 H Previously reported result: 69 Edited by: GIL on 10/02/19:97315810/02/19 0916: GFRBED previously reported as: [address] ABDOMEN/PELVIS [id number] 11:51:00 [place] [address] Patient Name: YADIEL DANGELO MR #: [id number] : 1945 Age/Sex: 74/M Req #: [id number] Adm Physician: Ordered by: STEFANY VÁSQUEZ DO Report #: [id number] Location: ER Room/Bed: Procedure: [id number] CT/CT ABDOMEN /PELVIS W Exam Date: 09/11/19 Exam Time: 1030 REPORT STATUS: Signed EXAM: CT Abdomen and Pelvis WITH intravenous contrast INDICATION: Abdominal pain COM PARISON: None. TECHNIQUE: Abdomen and pelvis were scanned utilizing a multi detector helical scanner from the lung base to the pubic symphysis after admin istration of IV contrast. Coronal and sagittal reformations were obtained. Rou viola protocol was performed. Scan was performed during portal venous phase. IV CONTRAST: 100mL of Isovue 370 ORAL CONTRAST: Water RADIATION D OSE: Total DLP: 432 mGy*cm Dose modulation, iterative reconstruction, an d/or weight based adjustment of the mA/kV was utilized to reduce the radiation dose to as low as reasonably achievable. FINDINGS: LOWER THORAX: Norm al. HEPATOBILIARY: No focal liver lesions. Mild intrahepatic biliary ductal dilation, possibly due to reservoir effect status post cholecystectomy. SPLEEN: No splenomegaly. PANCREAS: No focal masses or ductal dilatation. ADRENALS: No adrenal nodules. KIDNEYS/URETERS: No hydronephrosis, stones, o r solid mass lesions. PELVIC ORGANS/BLADDER: Unremarkable. PERITONEUM / R ETROPERITONEUM: No free air or fluid. LYMPH NODES: No lymphadenopathy. VESSE LS: Unremarkable. GI TRACT: No abnormal bowel thickening. No bowel obstruct ion. Normal appendix. BONES AND SOFT TISSUES: No acute osseous injury. No s uspicious lytic or blastic lesions. Degenerative changes of the visualized spi ne. IMPRESSION: No acute findings in the abdomen or pelvis. Mild in trahepatic biliary ductal dilation, possibly due to reservoir effect status po st cholecystectomy. Signed by: Renzo Stewart MD on 09/11/2019 12:02 PM Dictated By: RENZO STEWART MD 1202 Transcribed By: SORAYA on 09/11/19 1202 COPY TO: STEFANY VÁSQUEZ DO Blood leukocytes automated count (number/volume)2019-09-11 09:16:00* Test Item Value Reference Range Interpretation Comments White Blood Count (test code = 6690-2) 7.19 4.8-10.8 [facility] erythrocytes automated count (number/volume)2019-09-11 09:16:00* Test Item Value Reference Range Interpretation Comments Red Blood Count (test code = 789-8) 5.59 4.3-5.7 [facility] hemoglobin measurement (moles/volume)2019-09-11 09:16:00* Test Item Value Reference Range Interpretation Comments Hemoglobin (test code = 99738-1) 15.6 14.0-18.0 [facility] HospitalAutomated blood hematocrit (volume fraction)2019-09-11 09:16:00* Test Item Value Reference Range Interpretation Comments Hematocrit (test code = 4544-3) 46.5 38.2-49.6 [facility] HospitalAutomated erythrocyte mean corpuscular tgaxve9467-79-72 09:16:00* Test Item Value Reference Range Interpretation Comments Mean Corpuscular Volume (test code = 787-2) 83.2 81-99 [facility] HospitalAutomated erythrocyte mean corpuscular hemoglobin (mass per erythrocyte)2019-09-11 09:16:00* Test Item Value Reference Range Interpretation Comments Mean Corpuscular Hemoglobin (test code = 785-6) 27.9 28-32 [facility] HospitalAutcone healthed erythrocyte mean corpuscular hemoglobin concentration measurement (mass/volume)2019-09-11 09:16:00* Test Item Value Reference Range Interpretation Comments Mean Corpuscular Hemoglobin Concent (test code = 786-4) 33.5 31-35 [facility] HospitalRDW JokTq-Ewd7308-71-13 09:16:00* Test Item Value Reference Range Interpretation Comments Red Cell Distribution Width (test code = 29202-5) 14.0 11.7 -14.4 [facility] HospitalAutcone healthed blood platelet count (count/volume)2019-09-11 09:16:00* Test Item Value Reference Range Interpretation Comments Platelet Count (test code = 777-3) 239 140-360 [facility] HospitalAutcone healthed blood segmented neutrophil count as percentage of total xdjcxgbqnx3572-14-42 09:16:00* Test Item Value Reference Range Interpretation Comments Neutrophils (%) (Auto) (test code = 02231-4) 70.6 38.7-80.0 [facility] HospitalAutcone healthed blood lymphocyte count as percentage ot total dqaghrhjjn6050-57-27 09:16:00* Test Item Value Reference Range Interpretation Comments Lymphocytes (%) (Auto) (test code = 736-9) 19.6 18.0-39.1 [facility] HospitalAutomated blood monocyte count as percentage of total kisgtamgmb0702-28-95 09:16:00* Test Item Value Reference Range Interpretation Comments Monocytes (%) (Auto) (test code = 5905-5) 5.7 4.4-11.3 [facility] HospitalAutomated blood eosinophil count as percentage of total krfnynbext7782-14-63 09:16:00* Test Item Value Reference Range Interpretation Comments Eosinophils (%) (Auto) (test code = 713-8) 2.6 0.0-6.0 [facility] HospitalAutomated blood basophil count as percentage of total pdoiinwtfp1365-19-13 09:16:00* Test Item Value Reference Range Interpretation Comments Basophils (%) (Auto) (test code = 706-2) 0.7 0.0-1.0 [facility] HospitalFluoroscopic procedure less than one hour udolvpao7455-40-25 09:16:00* Test Item Value Reference Range Interpretation Comments IM GRANULOCYTES % (test code = IM GRANULOCYTES %) 0.8 0.0- 1.0 [facility] HospitalAutomated blood neutrophil count 2019-09-11 09:16:00* Test Item Value Reference Range Interpretation Comments Neutrophils # (Auto) (test code = 751-8) 5.1 2.1-6.9 [facility] HospitalBlood lymphocytes count (number/volume) 2019-09-11 09:16:00* Test Item Value Reference Range Interpretation Comments Lymphocytes # (Auto) (test code = 30892-7) 1.4 1.0-3.2 [facility] HospitalBlood monocytes automated count (number/volume)2019-09-11 09:16:00* Test Item Value Reference Range Interpretation Comments Monocytes # (Auto) (test code = 742-7) 0.4 0.2-0.8 [facility] HospitalAutomated blood eosinophil count 2019-09-11 09:16:00* Test Item Value Reference Range Interpretation Comments Eosinophils # (Auto) (test code = 711-2) 0.2 0.0-0.4 [facility] HospitalAutomated blood basophil count (count/volume)2019-09-11 09:16:00* Test Item Value Reference Range Interpretation Comments Basophils # (Auto) (test code = 704-7) 0.1 0.0-0.1 [facility] HospitalFluoroscopic procedure less than one hour twlaoaaa5963-39-58 09:16:00* Test Item Value Reference Range Interpretation Comments Absolute Immature Granulocyte (auto (paul t code = Absolute Immature Granulocyte (auto) 0.06 0-0.1 [facility] HospitalUrine color gqbbjkzaaylnf6040-56-44 09:16:00* Test Item Value Reference Range Interpretation Comments Urine Color (test code = 5778-6) YELLOW YELLOW [facility] HospitalUrine cgwbiow4494-30-73 09:16:00* Test Item Value Reference Range Interpretation Comments Urine Clarity (test code = 79529-6) CLEAR CLEAR [facility] gravity of Urine by Test strip 2019-09-11 09:16:00* Test Item Value Reference Range Interpretation Comments Urine Specific [place] (test code = 5811-5) >=1.030 1.010-1.02 5 [facility] HospitalUrine pH measurement by automated test idjjc3273-09-18 09:16:00* Test Item Value Reference Range Interpretation Comments Urine pH (test code = 71513-1) 5.5 5-7 [facility] HospitalUrine leukocyte esterase detection by eoqfjimh5880-41-38 09:16:00* Test Item Value Reference Range Interpretation Comments Urine Leukocyte Esterase (test code = 5799-2) NEGATIVE NEGATIVE [facility] HospitalUrine nitrite nxmjxgtay8366-90-75 09:16:00* Test Item Value Reference Range Interpretation Comments Urine Nitrite (test code = 11881-6) NEGATIVE NEGATIVE [facility] HospitalUrine protein measurement by test strip (mass/volume)2019-09-11 09:16:00* Test Item Value Reference Range Interpretation Comments Urine Protein (test code = 5804-0) NEGATIVE NEGATIVE [facility] HospitalUrine glucose fewzdxwfl2018-63-39 09:16:00* Test Item Value Reference Range Interpretation Comments Urine Glucose (UA) (test code = 2349-9) NEGATIVE NEGATIVE [facility] HospitalUrine ketones detection by automated test ujlwr3130-40-34 09:16:00* Test Item Value Reference Range Interpretation Comments Urine Ketones (test code = 69420-1) NEGATIVE NEGATIVE [facility] HospitalUrine urobilinogen measurement by test strip (mass/volume)2019-09-11 09:16:00* Test Item Value Reference Range Interpretation Comments Urine Urobilinogen (test code = 83232-2) 1 0.2-1 [facility] HospitalUrine total bilirubin measurement (mass/volume)2019-09-11 09:16:00* Test Item Value Reference Range Interpretation Comments Urine Bilirubin (test code = 1978-6) SMALL NEGATIVE [facility] HospitalUrine erythrocytes ydcydtokr1766-17-70 09:16:00* Test Item Value Reference Range Interpretation Comments Urine Blood (test code = 24629-0) NEGATIVE NEGATIVE [facility] HospitalAutomated urine sediment leukocyte count by microscopy (number/high power field)2019-09-11 09:16:00* Test Item Value Reference Range Interpretation Comments Urine WBC (test code = 5821-4) 0-5 0-5 [facility] HospitalErythrocytes detection in urine sediment by light guddcehvcp4657-21-34 09:16:00* Test Item Value Reference Range Interpretation Comments Urine RBC (test code = 23016-5) 0-5 0-5 [facility] HospitalBacteria detection in urine sediment by light dgyuvwhhja4675-62-78 09:16:00* Test Item Value Reference Range Interpretation Comments Urine Bacteria (test code = 64013-3) MANY NONE [facility] HospitalEpithelial cells detection in urine sediment by light dowiaaamjd4898-50-42 09:16:00* Test Item Value Reference Range Interpretation Comments Urine Epithelial Cells (test code = 92177-0) RARE NONE [facility] HospitalTransitional cells detection in urine sediment by light yysrxxdcku6532-10-33 09:16:00* Test Item Value Reference Range Interpretation Comments Urine Transitional Epithelial Cells (test code = 8249-5) FEW NONE [facility] HospitalMucus detection in urine sediment by light qrymtjuxqx5795-48-80 09:16:00* Test Item Value Reference Range Interpretation Comments Urine Mucus (test code = 8247-9) MANY RARE [facility]wooderum or plasma sodium measurement (moles/volume)2019-09-11 09:16:00* Test Item Value Reference Range Interpretation Comments Sodium Level (test code = 2951-2) 139 136-145 [facility]wooderum or plasma potassium measurement (moles/volume)2019-09-11 09:16:00* Test Item Value Reference Range Interpretation Comments Potassium Level (test code = 2823-3) 4.2 3.5-5.1 [facility]wooderum or plasma chloride measurement (moles/volume)2019-09-11 09:16:00* Test Item Value Reference Range Interpretation Comments Chloride Level (test code = 2075-0) 103 98-107 [facility]wooderum or plasma carbon dioxide, total measurement (moles/volume)2019-09-11 09:16:00* Test Item Value Reference Range Interpretation Comments Carbon Dioxide Level (test code = 2028-9) 27 22-29 [facility]wooderum or plasma anion wwb7158-60-67 09:16:00* Test Item Value Reference Range Interpretation Comments Anion Gap (test code = 36409-8) 13.2 8-16 [facility]wood[facility]um or plasma urea nitrogen measurement (mass/volume)2019-09-11 09:16:00* Test Item Value Reference Range Interpretation Comments Blood Urea Nitrogen (test code = 3094-0) 19 7-26 [facility]wooderum or plasma creatinine measurement (mass/volume)2019-09-11 09:16:00* Test Item Value Reference Range Interpretation Comments Creatinine (test code = 2160-0) 0.99 0.72-1.25 [facility]wooderum or plasma urea nitrogen/creatinine mass yvlqe9227-00-80 09:16:00* Test Item Value Reference Range Interpretation Comments BUN/Creatinine Ratio (test code = 3097-3) 19 6-25 [facility] HospitalEstimated glomerular filtration rate (GFR) utbcxvlbcdlka3636-18-19 09:16:00* Test Item Value Reference Range Interpretation Comments Estimat Glomerular Filtration Rate (test code = 931109476) > 60 >60 Ranges were taken from the National Kidney Disease Education Program and the [facility] Kidney Foundation literature.Reference ranges:60 or greater: Nkuzaz60-82 ( for 3 consecutive months): Chronic kidney disease 15 or less: Kidney failureHouston [facility] HospitalGlucose eejiwbquqxc3987-99-62 09:16:00* Test Item Value Reference Range Interpretation Comments Glucose Level (test code = EBY0556) 123 74-118 [facility]wooderum or plasma calcium measurement (mass/volume)2019-09-11 09:16:00* Test Item Value Reference Range Interpretation Comments Calcium Level (test code = 23891-2) 9.9 8.4-10.2 [facility]wood[facility]um or plasma total bilirubin measurement (mass/volume)2019-09-11 09:16:00* Test Item Value Reference Range Interpretation Comments Total Bilirubin (test code = 1975-2) 0.8 0.2-1.2 [facility] HospitalFluoroscopic procedure less than one hour ujxshdyh1015-77-24 09:16:00* Test Item Value Reference Range Interpretation Comments Aspartate Amino Transf (AST/SGOT) (test code = Aspartate Amino Transf (AST/SGOT)) 18 5-34 [facility]wooderum or plasma alanine aminotransferase measurement (enzymatic activity/volume)2019-09-11 09:16:00* Test Item Value Reference Range Interpretation Comments Alanine Aminotransferase (ALT/SGPT) (test code = 1742-6) 13 0-55 [facility]wooderum or plasma protein measurement (mass/volume)2019-09-11 09:16:00* Test Item Value Reference Range Interpretation Comments Total Protein (test code = 2885-2) 7.7 6.5-8.1 [facility]wooderum or plasma albumin measurement (mass/volume)2019-09-11 09:16:00* Test Item Value Reference Range Interpretation Comments Albumin (test code = 1751-7) 4.3 3.5-5.0 [facility] HospitalPlasma globulin measurement (mass/volume) 2019-09-11 09:16:00* Test Item Value Reference Range Interpretation Comments Globulin (test code = 06984-8) 3.4 2.3-3.5 [facility]um or plasma albumin/globulin mass yjtnf2692-51-14 09:16:00* Test Item Value Reference Range Interpretation Comments Albumin/Globulin Ratio (test code = 1759-0) 1.3 0.8-2.0 [facility]um or plasma alkaline phosphatase measurement (enzymatic activity/volume)2019-09-11 09:16:00* Test Item Value Reference Range Interpretation Comments Alkaline Phosphatase (test code = 6768-6) 102 40-150 [facility] HospitalBNP Ael-xRpm2740-31-13 09:16:00* Test Item Value Reference Range Interpretation Comments B-Type Natriuretic Peptide (test code = 05944-1) < 10.0 0-100 [facility]wooderum or plasma creatine kinase measurement (enzymatic activity/volume)2019-09-11 09:16:00* Test Item Value Reference Range Interpretation Comments Creatine Kinase (test code = 2157-6) 45 30-200 [facility]wooderum or plasma creatine kinase MB measurement (mass/volume)2019-09-11 09:16:00* Test Item Value Reference Range Interpretation Comments Creatine Kinase MB (test code = 87763-1) 2.90 0-5.0 [facility] HospitalTroponin I measurement by highly sensitive enzyme agbjigrsmka1337-29-31 09:16:00* Test Item Value Reference Range Interpretation Comments Troponin I (test code = 37445-5) 0.002 0-0.300 [facility]um or plasma lipase measurement (enzymatic activity/volume)2019-09-11 09:16:00* Test Item Value Reference Range Interpretation Comments Lipase (test code = 3040-3) 15 8-78 [facility] HospitalCreatine Kinase GO5978-08-06 07:09:00* Test Item Value Reference Range Interpretation Comments Creatine Kinase MB (test code = 67986-0) 3.20 0-5.0 [facility] [facility] HospitalTrop[facility] [id number] 07:09:00* Test Item Value Reference Range Interpretation Comments Troponin I (test code = QMG5835) 0.009 0-0.300 [facility] HospitalCreatine Wfsihy2797-77-75 07:06:00* Test Item Value Reference Range Interpretation Comments Creatine Kinase (test code = 2157-6) 33 30-200 [facility]odium Tuzqc6560-67-32 06:37:00* Test Item Value Reference Range Interpretation Comments Sodium Level (test code = 2951-2) 134 136-145 L [facility] HospitalPotassium Adcbg1441-72-15 06:37:00* Test Item Value Reference Range Interpretation Comments Potassium Level (test code = 2823-3) 4.2 3.5-5.1 [facility] HospitalChloride Byatj4393-04-61 06:37:00* Test Item Value Reference Range Interpretation Comments Chloride Level (test code = 2075-0) 100 98-107 [facility] HospitalCarbon Dioxide Vnymg7846-29-60 06:37:00* Test Item Value Reference Range Interpretation Comments Carbon Dioxide Level (test code = 2028-9) 26 22-29 [facility] HospitalAnion Mlu5244-39-19 06:37:00* Test Item Value Reference Range Interpretation Comments Anion Gap (test code = 41381-7) 12.2 8-16 [facility] HospitalBlood Urea Resrbtdg1698-14-81 06:37:00* Test Item Value Reference Range Interpretation Comments Blood Urea Nitrogen (test code = 3094-0) 18 7-26 [facility] HospitalCreatinine2019-12-04 06:37:00* Test Item Value Reference Range Interpretation Comments Creatinine (test code = 2160-0) 0.92 0.72-1.25 [facility] HospitalBUN/Creatinine Tbspv7490-95-31 06:37:00* Test Item Value Reference Range Interpretation Comments BUN/Creatinine Ratio (test code = 3097-3) 20 6-25 [facility] HospitalEstimat Glomerular Filtration Rate 2019-02-01 06:37:00* Test Item Value Reference Range Interpretation Comments Estimat Glomerular Filtration Rate (test code = 717359442) > 60 >60 Ranges were taken from the National Kidney Disease Education Program and the [facility] Foundation literature.Reference ranges:60 or greater: Uzevux14-40 ( for 3 consecutive months): Chronic kidney disease 15 or less: Kidney failureHouston [facility] HospitalGlucose Pkzlb9071-88-50 06:37:00* Test Item Value Reference Range Interpretation Comments Glucose Level (test code = CPZ4774) 120 74-118 H [facility] HospitalCalcium Ekvag6508-64-84 06:37:00* Test Item Value Reference Range Interpretation Comments Calcium Level (test code = 40741-2) 9.7 8.4-10.2 [facility] HospitalTotal Omyvvwseh6596-55-75 06:37:00* Test Item Value Reference Range Interpretation Comments Total Bilirubin (test code = 1975-2) 1.1 0.2-1.2 [facility] HospitalAspartate Amino Transf (AST/SGOT) 2019-02-01 06:37:00* Test Item Value Reference Range Interpretation Comments Aspartate Amino Transf (AST/SGOT) (test code = Aspartate Amino Transf (AST/SGOT)) 15 5-34 [facility] HospitalAlanine Aminotransferase (ALT/SGPT) 2019-02-01 06:37:00* Test Item Value Reference Range Interpretation Comments Alanine Aminotransferase (ALT/SGPT) (test code = 1742-6) 12 0-55 [facility] HospitalTotal Vyteyhu5372-94-04 06:37:00* Test Item Value Reference Range Interpretation Comments Total Protein (test code = 2885-2) 6.9 6.5-8.1 [facility] HospitalAlbumin2019-12-04 06:37:00* Test Item Value Reference Range Interpretation Comments Albumin (test code = 1751-7) 3.8 3.5-5.0 [facility] HospitalGlobulin2019-12-04 06:37:00* Test Item Value Reference Range Interpretation Comments Globulin (test code = 10556-1) 3.1 2.3-3.5 [facility] HospitalAlbumin/Globulin Bhktz6043-70-25 06:37:00 * Test Item Value Reference Range Interpretation Comments Albumin/Globulin Ratio (test code = 1759-0) 1.2 0.8-2.0 [facility] HospitalAlkaline Hfcyddiuveb8217-35-73 06:37:00* Test Item Value Reference Range Interpretation Comments Alkaline Phosphatase (test code = 6768-6) 81 40-150 [facility] HospitalTriglycerides Zommz3398-74-24 06:37:00* Test Item Value Reference Range Interpretation Comments Triglycerides Level (test code = 2571-8) 90 0-149 [facility] HospitalCholesterol Srgip1360-82-23 06:37:00* Test Item Value Reference Range Interpretation Comments Cholesterol Level (test code = 2093-3) 168 0-199 Less than 200 mg/dL Low Llbi416 - 239 mg/dL Borderline Czwi995 m g/dl and greater High Risk [facility] HospitalLDL Xbrdgemzyxy6563-46-36 06:37:00* Test Item Value Reference Range Interpretation Comments LDL Cholesterol (test code = 2089-1) 121 60-130 [facility] HospitalHDL Gzprcmftizq4396-26-30 06:37:00* Test Item Value Reference Range Interpretation Comments HDL Cholesterol (test code = 2085-9) 29 40-60 L [facility] HospitalCholesterol/HDL Ftdrb3041-55-81 06:37:00 * Test Item Value Reference Range Interpretation Comments Cholesterol/HDL Ratio (test code = 9830-1) 5.8 3.9-4.7 H [facility] HospitalWhite Blood Pqeel3104-54-33 06:13:00* Test Item Value Reference Range Interpretation Comments White Blood Count (test code = 6690-2) 5.79 4.8-10.8 [facility] HospitalRed Blood Etogq6764-61-56 06:13:00* Test Item Value Reference Range Interpretation Comments Red Blood Count (test code = 789-8) 5.26 4.3-5.7 [facility] HospitalHemoglobin2019-12-04 06:13:00* Test Item Value Reference Range Interpretation Comments Hemoglobin (test code = 93173-4) 14.9 14.0-18.0 [facility] HospitalHematocrit2019-12-04 06:13:00* Test Item Value Reference Range Interpretation Comments Hematocrit (test code = 4544-3) 44.7 38.2-49.6 [facility] HospitalMean Corpuscular Itcfeo7876-23-94 06:13:00* Test Item Value Reference Range Interpretation Comments Mean Corpuscular Volume (test code = 787-2) 85.0 81-99 [facility] HospitalMean Corpuscular Ttvskyrdqs5818-61-29 06:13:00* Test Item Value Reference Range Interpretation Comments Mean Corpuscular Hemoglobin (test code = 785-6) 28.3 28-32 [facility] Hem[facility] Concent 2019-02-01 06:13:00* Test Item Value Reference Range Interpretation Comments Mean Corpuscular Hemoglobin Concent (test code = 786-4) 33.3 31-35 [facility] HospitalRed Cell Distribution Omqvk6931-96-33 06:13:00* Test Item Value Reference Range Interpretation Comments Red Cell Distribution Width (test code = 91031-1) 13.8 11.7 -14.4 [facility] HospitalPlatelet Wocwk1118-56-71 06:13:00* Test Item Value Reference Range Interpretation Comments Platelet Count (test code = 777-3) 183 140-360 [facility] HospitalNeutrophils (%) (Auto)2019-02-01 06:13:00 * Test Item Value Reference Range Interpretation Comments Neutrophils (%) (Auto) (test code = 24190-7) 64.9 38.7-80.0 [facility] HospitalLymphocytes (%) (Auto)2019-02-01 06:13:00 * Test Item Value Reference Range Interpretation Comments Lymphocytes (%) (Auto) (test code = 736-9) 23.1 18.0-39.1 [facility] HospitalMonocytes (%) (Auto)2019-02-01 06:13:00* Test Item Value Reference Range Interpretation Comments Monocytes (%) (Auto) (test code = 5905-5) 6.6 4.4-11.3 [facility] HospitalEosinophils (%) (Auto)2019-02-01 06:13:00 * Test Item Value Reference Range Interpretation Comments Eosinophils (%) (Auto) (test code = 713-8) 4.0 0.0-6.0 [facility] HospitalBasophils (%) (Auto)2019-02-01 06:13:00* Test Item Value Reference Range Interpretation Comments Basophils (%) (Auto) (test code = 706-2) 0.9 0.0-1.0 [facility] HospitalIM GRANULOCYTES %2019-02-01 06:13:00* Test Item Value Reference Range Interpretation Comments IM GRANULOCYTES % (test code = IM GRANULOCYTES %) 0.5 0.0- 1.0 [facility] HospitalNeutrophils # (Auto)2019-02-01 06:13:00* Test Item Value Reference Range Interpretation Comments Neutrophils # (Auto) (test code = 751-8) 3.8 2.1-6.9 [facility] HospitalLymphocytes # (Auto)2019-02-01 06:13:00* Test Item Value Reference Range Interpretation Comments Lymphocytes # (Auto) (test code = 93506-9) 1.3 1.0-3.2 [facility] HospitalMonocytes # (Auto)2019-02-01 06:13:00* Test Item Value Reference Range Interpretation Comments Monocytes # (Auto) (test code = 742-7) 0.4 0.2-0.8 [facility] HospitalEosinophils # (Auto)2019-02-01 06:13:00* Test Item Value Reference Range Interpretation Comments Eosinophils # (Auto) (test code = 711-2) 0.2 0.0-0.4 [facility] HospitalBasophils # (Auto)2019-02-01 06:13:00* Test Item Value Reference Range Interpretation Comments Basophils # (Auto) (test code = 704-7) 0.1 0.0-0.1 [facility] HospitalAbsolute Immature Granulocyte (auto 2019-02-01 06:13:00* Test Item Value Reference Range Interpretation Comments Absolute Immature Granulocyte (auto (paul t code = Absolute Immature Granulocyte (auto) 0.03 0-0.1 [facility]wooderum or plasma triglyceride measurement (mass/volume)2019-02-01 04:50:00* Test Item Value Reference Range Interpretation Comments Triglycerides Level (test code = 2571-8) 90 0-149 [facility] Kingwooderum or plasma cholesterol measurement (mass/volume)2019-02-01 04:50:00* Test Item Value Reference Range Interpretation Comments Cholesterol Level (test code = 2093-3) 168 0-199 Less than 200 mg/dL Low Btci928 - 239 mg/dL Borderline Qzrd634 m g/dl and greater High Risk [facility]wooderum or plasma cholesterol in LDL measurement (mass/volume) 2019-02-01 04:50:00* Test Item Value Reference Range Interpretation Comments LDL Cholesterol (test code = 2089-1) 121 60-130 [facility]wooderum or plasma cholesterol in HDL measurement (mass/volume)2019-02-01 04:50:00* Test Item Value Reference Range Interpretation Comments HDL Cholesterol (test code = 2085-9) 29 40-60 [facility]wooderum or plasma total cholesterol/cholesterol in HDL mass okjxg3772-10-42 04:50:00* Test Item Value Reference Range Interpretation Comments Cholesterol/HDL Ratio (test code = 9830-1) 5.8 3.9-4.7 [facility] HospitalCTA PUDBJ3436-54-59 16:59:00 [facility] [address] [address] Patient Name: YADIEL DANGELO MR #: [id number] : 1945 Age/Sex: 73/M Req #: [id number] Adm Physician: YADIEL MEDINA MD Ordered by: FABIAN BASHIR MD Report #: [id number] Location: MED/SURG3 Room/Bed: [facility] Procedure: [id number]/CTA BRAIN Exam Date: 01/31/19 Exam Time: 1540 REPORT STATUS: Signed History:Syn cope Comparison studies:No prior available vascular imaging of the head or neck available for comparison. Technique: Axial images were obtained f rom the thoracic inlet. Coronal and sagittal images reconstructed from the axi al data. Additional multiplanar MIP and volume rendered 3-D images of the circ le of Mcpherson and carotid bulbs were reformatted from the axial source data. Do se modulation, iterative reconstruction, and/or weight based adjustment of the mA/kV was utilized to reduce the radiation dose to as low as reasonably achie vable. Intravenous contrast: 100 cc of Isovue-370. Findings: Nec k CTA: If present, stenosis is calculated utilizing the NASCET method which calculates the degree of stenosis with reference to the normal lumen of the c arotid artery distal to the stenosis. Aortic arch and great vessels. P atent, no stenosis. Common carotid arteries: Patent, no abnormalities. Carot id bulbs: Mild calcified and soft plaque bilaterally which result in no (0%) s tenosis by NASCET criteria. Internal carotid arteries: Patent, no stenosis. Mi ld nonstenotic calcified plaque on the right. Vertebral arteries: Patent barbie aterally. Right vertebral artery is hypoplastic. Dominant left vertebral arter y arises directly off the aortic arch. Intracranial CTA: No aneurysm o r arterial-vascular malformation identified. Anterior circulation: Int ernal carotid arteries: Patent, no stenosis. Minimal nonstenotic calcified ath erosclerosis, better visualized on the prior noncontrast head CT. Anterior cer ebral arteries: Patent, no proximal branch occlusion or stenosis. Middle cereb ral arteries: Patent, no proximal branch occlusion or stenosis. Posterior c irculation: Vertebral arteries: Hypoplastic right vertebral artery is not well -visualized beyond its dural insertion. Patent left intradural V4 segment whic h contains minimal nonstenotic calcified atherosclerosis. Basilar artery: Pa tent, no abnormalities. Posterior cerebral arteries: Patent, no proximal branc h occlusion or stenosis. Anatomical variants: Acom: Patent. Posterio r cerebral arteries: Hypoplastic right P1 segment with patent right posterior commuting indicating artery. Left posterior commuting indicating artery is not well-visualized. Vertebral arteries: Dominant left vertebral artery with hypo plastic right vertebral artery which essentially terminates at the V3-V4 junct ion. Included spine: Multilevel degenerative changes in the cervical and included thoracic spine. Contiguous anterior marginal bridging osteophytes in the thoracic spine in configuration which can be seen with diffuse idiopathic skeletal hyperostosis (DISH). Mild canal stenosis at C4-C5 due to a disc bulge and mild canal stenosis at C5-C6 and C6-C7 due to disc osteophyte complexes. Varying degrees of mild to moderate multilevel foraminal stenosis in the cervi camila spine due to uncovertebral facet arthrosis. Incidental findings: M ild mucosal thickening or small fluid in the left sphenoid sinus and mild muco elana thickening in the right maxillary sinus. Multiple absent teeth with multip le dental fillings, prior root canals, right medial maxillary sinus as well as multiple dental care is with multifocal periodontal disease. IMPRESSION : Neck and intracranial CTA: 1. No major branch occlusion or stenosis . 2. Mild scattered atherosclerosis as described without significant stenosis . No (0%) stenosis at the carotid bulbs. 3. Anatomical variants as describe d which include hypoplastic right vertebral artery. Signed by: Dr. Veronica Smith M.D. on 01/31/2019 5:22 PM Dictated By: VERONICA SMITH MD [facility] Signed By: VERONICA SMITH MD on 01/31/191721 Transcribed By: DORYS Mukherjee on 01/31/191721 COPY TO: FABIAN BASHIR MD CTA NECK 2019-01-31 16:59:[address] [address] Patient Name: YADIEL DANGELO MR #: [id number] : 1945 Age/Sex: 73/M Req #: [id number] Adm Physician: YADIEL MEDINA MD Ordered by: FABIAN BASHIR MD Report #: [id number] Location: MED/SURG3 Room/Bed: [facility] Procedure: 1203-[address]/CTA NECK Exam Date: 01/31/19 Exam Time: 1540 REPORT STATUS: Signed History:Sync ope Comparison studies:No prior available vascular imaging of the head or n edith available for comparison. Technique: Axial images were obtained fr om the thoracic inlet. Coronal and sagittal images reconstructed from the axia l data. Additional multiplanar MIP and volume rendered 3-D images of the circl e of Mcpherson and carotid bulbs were reformatted from the axial source data. Dos e modulation, iterative reconstruction, and/or weight based adjustment of the mA/kV was utilized to reduce the radiation dose to as low as reasonably achiev able. Intravenous contrast: 100 cc of Isovue-370. Findings: Neck CTA: If present, stenosis is calculated utilizing the NASCET method which calculates the degree of stenosis with reference to the normal lumen of the ca rotid artery distal to the stenosis. Aortic arch and great vessels. Pa tent, no stenosis. Common carotid arteries: Patent, no abnormalities. Caroti d bulbs: Mild calcified and soft plaque bilaterally which result in no (0%) st enosis by NASCET criteria. Internal carotid arteries: Patent, no stenosis. Mil d nonstenotic calcified plaque on the right. Vertebral arteries: Patent bila terally. Right vertebral artery is hypoplastic. Dominant left vertebral artery arises directly off the aortic arch. Intracranial CTA: No aneurysm or arterial-vascular malformation identified. Anterior circulation: Inte rnal carotid arteries: Patent, no stenosis. Minimal nonstenotic calcified athe rosclerosis, better visualized on the prior noncontrast head CT. Anterior cere bral arteries: Patent, no proximal branch occlusion or stenosis. Middle cerebr al arteries: Patent, no proximal branch occlusion or stenosis. Posterior ci rculation: Vertebral arteries: Hypoplastic right vertebral artery is not well- visualized beyond its dural insertion. Patent left intradural V4 segment which contains minimal nonstenotic calcified atherosclerosis. Basilar artery: Pat ent, no abnormalities. Posterior cerebral arteries: Patent, no proximal branch occlusion or stenosis. Anatomical variants: Acom: Patent. Posterior cerebral arteries: Hypoplastic right P1 segment with patent right posterior c ommuting indicating artery. Left posterior commuting indicating artery is not well-visualized. Vertebral arteries: Dominant left vertebral artery with hypop lastic right vertebral artery which essentially terminates at the V3-V4 juncti on. Included spine: Multilevel degenerative changes in the cervical and i ncluded thoracic spine. Contiguous anterior marginal bridging osteophytes in t he thoracic spine in configuration which can be seen with diffuse idiopathic s keletal hyperostosis (DISH). Mild canal stenosis at C4-C5 due to a disc bulge and mild canal stenosis at C5-C6 and C6-C7 due to disc osteophyte complexes. V arying degrees of mild to moderate multilevel foraminal stenosis in the cervic al spine due to uncovertebral facet arthrosis. Incidental findings: Mi ld mucosal thickening or small fluid in the left sphenoid sinus and mild mucos al thickening in the right maxillary sinus. Multiple absent teeth with multipl e dental fillings, prior root canals, right medial maxillary sinus as well as multiple dental care is with multifocal periodontal disease. IMPRESSION: Neck and intracranial CTA: 1. No major branch occlusion or stenosis. 2. Mild scattered atherosclerosis as described without significant stenosis. No (0%) stenosis at the carotid bulbs. 3. Anatomical variants as described which include hypoplastic right vertebral artery. Signed by: Dr. Veronica cabrera M.D. on 01/31/2019 5:22 PM Dictated By: VERONICA SMITH MD Electr onically Signed By: VERONICA SMITH MD on 01/31/191721 Transcribed By: SORAYA on 01/31/191721 COPY TO: FABIAN BASHIR MD CT BRAIN WO 2019-01-31 11:13:00 [address] [address] Patient Name: YADIEL DANGELO MR #: [id number] : 1945 Age/Sex: 73/M Req #: [id number] Adm Physician: Ordered by: CATHIE STEELE MD Report #: [id number] Location: ER Room/Bed: Procedure: [id number] T/CT BRAIN WO Exam Date: 01/31/19 Exam Time: 1000 REPORT STATUS: Signed CT BRAIN WO HISTORY: Syncope COMPARISON: Head CT 11/26/2017 Technique: Non contrast axial scans were obtained from skull base to the vertex. Coronal and sagittal reconstructions obtained from the axial data. One or more of the fo llowin dose reduction techniques were used: Automated exposure control, adjus tment of the mA and/or kV according to patient size, and/or utilization of ite rative reconstruction technique. DISCUSSION: Scalp/Skull: Unremarkable . Brain sulci: Mildly prominent. Ventricles: Compensatory dilatation. Extr a-axial spaces: No masses or fluid collections. Carotid and vertebral artery c alcifications are present. Parenchyma: Mild bilateral deep white matter hypodensity is likely chronic microvascular ischemic change. Otherwise, no masses, hemorrhage, or large vascular territory acute infarct. Dural sinuse s: No abnormal densities. Sellar/Suprasellar region: Intact. Skull base: In tact. Incidental findings: Minimal bilateral ethmoid air cell and left sphenoi d sinus mucosal thickening. IMPRESSION: 1. No acute intracranial abnor malities. 2. Mild supratentorial chronic microvascular ischemic change. Mild generalized cerebral volume loss. Signed by: Dr. Jamel Zimmerman M.D. on 01/31/2019 11:16 AM Dictated By: JAMEL ZIMMERMAN MD Electronically Si gned By: JAMEL ZIMMERMAN MD on 01/31/191115 Transcribed By: SORAYA on 1115 COPY TO: CATHIE STEELE MD Prothrombin Xfof1539-01-39 11:11:00* Test Item Value Reference Range Interpretation Comments Prothrombin Time (test code = 5902-2) 13.4 11.9-14.5 [facility] HospitalProthromb Time International Ratio 2019-01-31 11:11:00* Test Item Value Reference Range Interpretation Comments Prothromb Time International Ratio (test code = 6301-6) 0.97 Oral Anticoagulant Therapy INR Values:1. Low Intensity Therapy 1.5 - 2.02 . Moderate Intensity Therapy 2.0 - 3.03. High Intensity Therapy(1) 2.5 - 3. 54. High Intensity Therapy(2) 3.0 - 4.05. Panic Value INR > 5.0 [facility] HospitalActivated Partial Thromboplast Time 2019-01-31 11:11:00* Test Item Value Reference Range Interpretation Comments Activated Partial Thromboplast Time (test code = 32807-7) 33.1 23.8-35.5 [facility] HospitalThyroid Stimulating Hormone (TSH) 2019-01-31 11:05:00* Test Item Value Reference Range Interpretation Comments Thyroid Stimulating Hormone (TSH) (test code = 82019-3) 2.487 0.350-4.940 [facility] HospitalB-Type Natriuretic Xdsbzyg1781-98-30 11:00:00* Test Item Value Reference Range Interpretation Comments B-Type Natriuretic Peptide (test code = 26848-0) 12.9 0-100 [facility] HospitalMagnesium Oezym6886-36-16 10:59:00* Test Item Value Reference Range Interpretation Comments Magnesium Level (test code = 74611-1) 1.9 1.3-2.1 [facility] HospitalUrine FVK0524-06-55 10:33:00* Test Item Value Reference Range Interpretation Comments Urine WBC (test code = 5821-4) 0-5 0-5 [facility] HospitalUrine LPI2250-47-57 10:33:00* Test Item Value Reference Range Interpretation Comments Urine RBC (test code = 13636-5) 0-5 0-5 [facility] HospitalUrine Tyearyde2824-63-04 10:33:00* Test Item Value Reference Range Interpretation Comments Urine Bacteria (test code = 32037-9) RARE NONE [facility] HospitalUrine Epithelial Lmnls2580-47-43 10:33:00 * Test Item Value Reference Range Interpretation Comments Urine Epithelial Cells (test code = 44888-0) FEW NONE [facility] HospitalUrine Nxexc0788-01-95 10:25:00* Test Item Value Reference Range Interpretation Comments Urine Color (test code = 5778-6) YELLOW YELLOW [facility] HospitalUrine Huwqnli8451-72-42 10:25:00* Test Item Value Reference Range Interpretation Comments Urine Clarity (test code = 07029-4) CLEAR CLEAR [facility] HospitalUrine Specific Ifbegjp0378-79-52 10:25:00 * Test Item Value Reference Range Interpretation Comments Urine Specific [place] (test code = 5811-5) 1.025 1.010-1.02 5 [facility] HospitalUrine [id number] 10:25:00* Test Item Value Reference Range Interpretation Comments Urine pH (test code = 86608-2) 6 5-7 [facility] HospitalUrine Leukocyte Qecbjbch0225-04-05 10:25:00* Test Item Value Reference Range Interpretation Comments Urine Leukocyte Esterase (test code = 87831-5) NEGATIVE NEGATIV E [facility] HospitalUrine Vptmzju6554-02-93 10:25:00* Test Item Value Reference Range Interpretation Comments Urine Nitrite (test code = 08252-6) NEGATIVE NEGATIVE [facility] HospitalUrine Hsrunrm4887-67-58 10:25:00* Test Item Value Reference Range Interpretation Comments Urine Protein (test code = 20727-1) NEGATIVE NEGATIVE [facility] HospitalUrine Glucose (UA)2019-01-31 10:25:00* Test Item Value Reference Range Interpretation Comments Urine Glucose (UA) (test code = 82584-1) NEGATIVE NEGATIVE [facility] HospitalUrine Kbyxmmy8669-32-83 10:25:00* Test Item Value Reference Range Interpretation Comments Urine Ketones (test code = 05615-4) NEGATIVE NEGATIVE [facility] [facility] Ahnzoynvjhhz8737-89-15 10:25:00* Test Item Value Reference Range Interpretation Comments Urine Urobilinogen (test code = 29758-7) 1 0.2-1 [facility] Hgzesgkvq7367-06-28 10:25:00* Test Item Value Reference Range Interpretation Comments Urine Bilirubin (test code = 1977-8) NEGATIVE NEGATIVE [facility] Oewgg3588-80-89 10:25:00* Test Item Value Reference Range Interpretation Comments Urine Blood (test code = 74253-4) NEGATIVE NEGATIVE [facility] HospitalCHE[facility]INGLE (PORTABLE)2019-01-31 10:24:00 [facility] [address] [address] Patient Name: YADIEL DANGELO MR #: [id number] : 1945 Age/Sex: 73/M Req #: [id number] Adm Physician: Ordered by: CATHIE STEELE MD Report #: [id number] Location: ER Room/Bed: Procedure: [id number] D X/CHEST SINGLE (PORTABLE) Exam Date: 01/31/19 Exam T brenda: 1000 REPORT STATUS: Signed EXAM: CHEST SINGLE (PORTABLE) DATE: 01/31/2019 9:38 AM INDICATION: S yncope COMPARISON: 07/10/2018 FINDINGS: Dual lead left-sided pacing device identified in stable position. The trachea is midline. The lungs are symmetrically expanded without evidence for large focal consolidation, pneumo thorax, or significant pleural effusion. The cardiomediastinal silhouette a nd pulmonary vasculature are within normal limits. No acute osseous abnormalit y is identified. The surrounding soft tissues are unremarkable. IMPRES FAY: No acute cardiopulmonary process identified. Signed by: Dr. Aj Matias MD on 01/31/2019 10:25 AM Dictated By: AJ Aleman [facility]en Signed By: AJ MATIAS MD on 01/31/19 1025 Transcribed By: SORAYA on 04/03/18 1025 COPY TO: CATHIE STEELE MD Prothrombin time (PT) in platelet poor plasma by coagulation secph3431-01-91 08:50:00* Test Item Value Reference Range Interpretation Comments Prothrombin Time (test code = 5902-2) 13.4 11.9-14.5 [facility] HospitalINR in Platelet poor plasma by Coagulation apgtd4556-22-82 08:50:00* Test Item Value Reference Range Interpretation Comments Prothromb Time International Ratio (test code = 6301-6) 0.97 Oral Anticoagulant Therapy INR Values:1. Low Intensity Therapy 1.5 - 2.02 . Moderate Intensity Therapy 2.0 - 3.03. High Intensity Therapy(1) 2.5 - 3. 54. High Intensity Therapy(2) 3.0 - 4.05. Panic Value INR > 5.0 [facility] HospitalActivated partial thromboplastin time (aPTT) in platelet poor plasma by coagulation ismod5933-93-26 08:50:00* Test Item Value Reference Range Interpretation Comments Activated Partial Thromboplast Time (test code = 34494-3) 33.1 23.8-35.5 [facility]um or plasma magnesium measurement (mass/volume)2019-01-31 08:50:00* Test Item Value Reference Range Interpretation Comments Magnesium Level (test code = 28130-3) 1.9 1.3-2.1 [facility]wooderum or plasma thyrotropin measurement by detection limit <= 0.005 miu/l (units/volume)2019-01-31 08:50:00* Test Item Value Reference Range Interpretation Comments Thyroid Stimulating Hormone (TSH) (test code = 84326-6) 2.487 0.350-4.940 [facility] HospitalABDOMEN-1VIEW (KUB)2018-10-05 22:13:00 [facility] [address] [place] [address] Patient Name: YADIEL DANGELO MR #: [id number] : 1945 Age/Sex: 73/M Req #: [id number] Adm Physician: Ordered by: SPENCER PEACE MD Report #: [id number] Location: ER Room/Bed: Procedure: [id number] DX/ABDOMEN-1VIEW (KUB) Exam Date: 10/05/18 Exam Alfredo e: 2035 REPORT STATUS: Signed EX AM: ABDOMEN-1VIEW (KUB), DATE: 10/05/2018 8:04 PM INDICATION: Constipat ion. COMPARISON: None FINDINGS: LINES/TUBES: None. Right atrial and rig ht ventricular pacemaker leads. BOWEL PATTERN: No evidence for obstruction. Moderate volume of stool within the colon. SOFT TISSUES: Cholecystectomy clips with dropped clip in the pelvis. LUNG BASES: Mild patchy density in the left lung base may represent atelectasis versus pneumonia in the proper cl inical setting. BONES: Multilevel degenerative changes of the lumbar spine. IMPRESSION: Moderate volume of stool within the colon. Nonobstructive b owel gas pattern. Left basilar atelectasis may represent atelectasis, scarr ing versus less likely pneumonia in the proper clinical setting. Signed by: Dr. Pooja Wilson M.D. on 10/05/2018 10:15 PM Dic tated By: SAQIB WILSON MD, MD 14 COPY TO: SPENCER RAI MD CHEST 2 OJGPP6275-16-11 13:13:[address] [address] Patient Name: YADIEL DANGELO MR #: [id number] : 1945 Age/Sex: 73/M Req #: [id number] Adm Physician: Ordered by: CATHIE STEELE MD Report #: [id number] Location: ER Room/Bed: Procedure: [id number] D X/CHEST 2 VIEWS Exam Date: 07/10/18 Exam Time: 1304 REPORT STATUS: Signed EXAMINATIO N: CHEST 2 VIEWS INDICATION: Cough COUGH [id number] COMPARISON: None FINDINGS: PA and lateral views TUBES and LINES : Dual-lead pacemaker wires terminate in the right atrium and right ventricle . LUNGS: Diffuse hyperinflation suggestive of COPD. There is no evidence of pneumonia or pulmonary edema. PLEURA: No pleural effusion or pneumoth orax. HEART AND MEDIASTINUM: The cardiomediastinal silhouette is unremarkab le. The heart is normal in size. The aorta is tortuous. BONES AND SOFT TISSUES: No focal osseous lesions. Soft tissues are unremarkable. UPPE R ABDOMEN: No free air under the diaphragm. Cholecystectomy clips in the right upper quadrant. IMPRESSION: Pulmonary hyperinflation suggestive of C OPD. No acute cardiopulmonary process. Signed by: Dr. Lara Pablo MD on 07/10/2018 1:15 PM Dictated By: LARA PABLO MD Electronicall y Signed By: LARA PABLO MD on 07/10/185 Transcribed By: SORAYA on 0 07/10/18 1315 COPY TO: CATHIE STEELE MD Creatine Kinase MB 2017-11-26 08:40:00* Test Item Value Reference Range Interpretation Comments Creatine Kinase MB (test code = 66424-6) 2.00 0-5.0 [facility] B3232-08-88 08:40:00* Test Item Value Reference Range Interpretation Comments Troponin I (test code = CFI9099) 0.003 0-0.300 [facility] HospitalCreatine Kinase XO0663-01-88 08:40:00* Test Item Value Reference Range Interpretation Comments Creatine Kinase MB (test code = 60604-1) 2.00 0-5.0 [facility] HospitalTroponin [id number] 08:40:00* Test Item Value Reference Range Interpretation Comments Troponin I (test code = GDJ9827) 0.003 0-0.300 [facility]LE [facility])2017-11-26 08:38:[address] [address] Patient Name: YADIEL DANGELO MR #: [id number] : 1945 Age/Sex: 72/M Req #: [id number] Adm Physician: Ordered by: JAXSON GALINDO MD Report #: [id number] Location: ER Room/Bed: Procedure: [id number] DX/CHEST SINGLE (PORTABL E) Exam Date: 11/26/17 Exam Time: 0815 REPORT STATUS: Signed PROCEDURE: CHEST SINGLE (PORTABLE) COMPARISON: The 11/03/2017 chest x-ray INDICATIONS: DIZZINESS FINDINGS: LUNGS: No consolida tions or edema. PLEURA: No effusions or pneumothorax. HEART T MEDIASTINUM: The heart is within normal size-limits. Prominent superior med iastinum unchanged. Tortuous thoracic aorta. BONES T SOFT TISSUES: No acute findings. CONCLUSION: No acute thoracic abnormality. Ankur Bermeo D.O. Dictated by: Ankur Bermeo D.O. on 11/26/2017 at 8:38 Electronically approved by: Ankur Bermeo D.O. on 11/26/2017 at 8:38 Dictated By: ANKUR BERMEO DO 7 Transcribed By: GIL on 11/26/17837 COPY TO: JAXSON GALINDO MD Sodium Mvalr1093-80-27 08:24:00* Test Item Value Reference Range Interpretation Comments Sodium Level (test code = 2951-2) 140 136-145 [facility] HospitalPotassium Rvfjt4853-92-53 08:24:00* Test Item Value Reference Range Interpretation Comments Potassium Level (test code = 2823-3) 3.9 3.5-5.1 [facility] HospitalChloride Eauku6425-53-20 08:24:00* Test Item Value Reference Range Interpretation Comments Chloride Level (test code = 2075-0) 104 98-107 [facility] HospitalCarbon Dioxide Fyyyu9945-19-69 08:24:00* Test Item Value Reference Range Interpretation Comments Carbon Dioxide Level (test code = 2028-9) 25 22-29 [facility] HospitalAnion Xzy8753-57-85 08:24:00* Test Item Value Reference Range Interpretation Comments Anion Gap (test code = 07568-2) 14.9 8-16 [facility] HospitalBlood Urea Qeyqfrrc3971-54-01 08:24:00* Test Item Value Reference Range Interpretation Comments Blood Urea Nitrogen (test code = 3094-0) 19 7-26 [facility] HospitalCreatinine2018-09-28 08:24:00* Test Item Value Reference Range Interpretation Comments Creatinine (test code = 2160-0) 0.87 0.72-1.25 [facility] HospitalBUN/Creatinine Ytwnt4214-12-83 08:24:00* Test Item Value Reference Range Interpretation Comments BUN/Creatinine Ratio (test code = 3097-3) 22 6-25 [facility] HospitalEstimat Glomerular Filtration Rate 2017-11-26 08:24:00* Test Item Value Reference Range Interpretation Comments Estimat Glomerular Filtration Rate (test code = 022653397) 60- >60 Ranges were taken from the National Kidney Disease Education Program and the [facility] Kidney Foundation literature.Reference ranges:60 or greater: Wtupvw44-69 ( for 3 consecutive months): Chronic kidney disease 15 or less: Kidney failureHouston [facility] Sugar [facility] HospitalGlucose Sphaq4138-01-74 08:24:00* Test Item Value Reference Range Interpretation Comments Glucose Level (test code = XVZ8062) 128 74-118 H [facility] HospitalCalcium Voqwk2489-48-12 08:24:00* Test Item Value Reference Range Interpretation Comments Calcium Level (test code = 60489-2) 9.8 8.4-10.2 [facility] HospitalTotal Jyqomnhcg2121-98-30 08:24:00* Test Item Value Reference Range Interpretation Comments Total Bilirubin (test code = 1975-2) 0.4 0.2-1.2 [facility] HospitalAspartate Amino Transf (AST/SGOT) 2017-11-26 08:24:00* Test Item Value Reference Range Interpretation Comments Aspartate Amino Transf (AST/SGOT) (test code = Aspartate Amino Transf (AST/SGOT)) 22 5-34 [facility] HospitalAlanine Aminotransferase (ALT/SGPT) 2017-11-26 08:24:00* Test Item Value Reference Range Interpretation Comments Alanine Aminotransferase (ALT/SGPT) (test code = 1742-6) 14 0-55 [facility] HospitalTotal Ucipfrl1076-53-78 08:24:00* Test Item Value Reference Range Interpretation Comments Total Protein (test code = 2885-2) 7.2 6.5-8.1 [facility] HospitalAlbumin2018-09-28 08:24:00* Test Item Value Reference Range Interpretation Comments Albumin (test code = 1751-7) 4.1 3.5-5.0 [facility] HospitalGlobulin2018-09-28 08:24:00* Test Item Value Reference Range Interpretation Comments Globulin (test code = 57383-3) 3.1 2.3-3.5 [facility] HospitalAlbumin/Globulin Vuabn0216-64-21 08:24:00 * Test Item Value Reference Range Interpretation Comments Albumin/Globulin Ratio (test code = 1759-0) 1.3 0.8-2.0 [facility] HospitalAlkaline Vmyiswnmdvy9681-74-22 08:24:00* Test Item Value Reference Range Interpretation Comments Alkaline Phosphatase (test code = 6768-6) 104 40-150 [facility] HospitalCreatine Lpxfor9388-12-80 08:24:00* Test Item Value Reference Range Interpretation Comments Creatine Kinase (test code = 2157-6) 38 30-200 [facility]woododium Bjfyk9880-54-19 08:24:00* Test Item Value Reference Range Interpretation Comments Sodium Level (test code = 2951-2) 140 136-145 [facility] HospitalPotassium Oyehk2788-52-01 08:24:00* Test Item Value Reference Range Interpretation Comments Potassium Level (test code = 2823-3) 3.9 3.5-5.1 [facility] HospitalChloride Tvtkl6108-41-32 08:24:00* Test Item Value Reference Range Interpretation Comments Chloride Level (test code = 2075-0) 104 98-107 [facility] HospitalCarbon Dioxide Dzdyb3895-87-06 08:24:00* Test Item Value Reference Range Interpretation Comments Carbon Dioxide Level (test code = 2028-9) 25 22-29 [facility] HospitalAnion Nzj3766-73-10 08:24:00* Test Item Value Reference Range Interpretation Comments Anion Gap (test code = 77481-0) 14.9 8-16 [facility] HospitalBlood Urea Qibqillw1148-57-45 08:24:00* Test Item Value Reference Range Interpretation Comments Blood Urea Nitrogen (test code = 3094-0) 19 7-26 [facility] HospitalCreatinine2018-09-28 08:24:00* Test Item Value Reference Range Interpretation Comments Creatinine (test code = 2160-0) 0.87 0.72-1.25 [facility] HospitalBUN/Creatinine Zjpno2011-02-31 08:24:00* Test Item Value Reference Range Interpretation Comments BUN/Creatinine Ratio (test code = 3097-3) 22 6-25 [facility] HospitalEstimat Glomerular Filtration Rate 2017-11-26 08:24:00* Test Item Value Reference Range Interpretation Comments Estimat Glomerular Filtration Rate (test code = 058579439) > 60 >60 Ranges were taken from the National Kidney Disease Education Program and the [facility] Foundation literature.Reference ranges:60 or greater: Yfwxwh95-33 ( for 3 consecutive months): Chronic kidney disease 15 or less: Kidney failureHouston Methodist Sugar [facility] HospitalGlucose Jlkha1427-06-24 08:24:00* Test Item Value Reference Range Interpretation Comments Glucose Level (test code = LNL0173) 128 74-118 H [facility] HospitalCalcium Trdme0863-56-04 08:24:00* Test Item Value Reference Range Interpretation Comments Calcium Level (test code = 73889-9) 9.8 8.4-10.2 [facility] HospitalTotal Hrubnnavc0313-52-74 08:24:00* Test Item Value Reference Range Interpretation Comments Total Bilirubin (test code = 1975-2) 0.4 0.2-1.2 [facility] HospitalAspartate Amino Transf (AST/SGOT) 2017-11-26 08:24:00* Test Item Value Reference Range Interpretation Comments Aspartate Amino Transf (AST/SGOT) (test code = Aspartate Amino Transf (AST/SGOT)) 22 5-34 [facility] HospitalAlanine Aminotransferase (ALT/SGPT) 2017-11-26 08:24:00* Test Item Value Reference Range Interpretation Comments Alanine Aminotransferase (ALT/SGPT) (test code = 1742-6) 14 0-55 [facility] HospitalTotal Wizzhhr5494-71-21 08:24:00* Test Item Value Reference Range Interpretation Comments Total Protein (test code = 2885-2) 7.2 6.5-8.1 [facility] HospitalAlbumin2018-09-28 08:24:00* Test Item Value Reference Range Interpretation Comments Albumin (test code = 1751-7) 4.1 3.5-5.0 [facility] HospitalGlobulin2018-09-28 08:24:00* Test Item Value Reference Range Interpretation Comments Globulin (test code = 45381-1) 3.1 2.3-3.5 [facility] HospitalAlbumin/Globulin Hbagp9377-78-40 08:24:00 * Test Item Value Reference Range Interpretation Comments Albumin/Globulin Ratio (test code = 1759-0) 1.3 0.8-2.0 [facility] HospitalAlkaline Ahquonqvinj8691-14-61 08:24:00* Test Item Value Reference Range Interpretation Comments Alkaline Phosphatase (test code = 6768-6) 104 40-150 [facility] HospitalCreatine Touhmd3437-23-55 08:24:00* Test Item Value Reference Range Interpretation Comments Creatine Kinase (test code = 2157-6) 38 30-200 [facility] HospitalCT BRAIN PX8240-02-65 08:20:00 [facility] [address] [address] Patient Name: YADIEL DANGELO MR #: [id number] : 1945 Age/Sex: 72/M Req #: [id number] Adm Physician: Ordered by: JAXSON GALINDO MD Report #: [id number] Location: [facility]/Bed: Procedure: [id number] CT/CT BRAIN WO Exam Marcelino e: 11/26/17 Exam Time: 0810 REPORT STATUS: Sign ed Exam: Head CT without contrast History: Trauma, fall, dizziness Danilo rison studies: Multiple prior head CTs which date to 11/03/2016, most recent he ad CT 11/03/2017. Technique: Axial images were obtained from the skull base to the vertex. Coronal and sagittal images reconstructed from the axial data. Dose modulation, iterative reconstruction, and/or weight based adjustment of the mA/kV was utilized to reduce the radiation dose to as low as reasonably achievable. Radiation dose: Total DLP: 921 mGy*cm. Estimated effe ctive dose: DLP x 0.015 Intravenous contrast: None Findings: Scalp: No abnormalities. Bones: No fractures, blastic or lytic lesions. Brain s ulci: Mildly prominent. Ventricles: Mild compensatory dilatation. No hydroceph alus. Extra-axial spaces: No masses, no fluid collection. Parenchyma: No mass, acute hemorrhage or acute or chronic cortical vascular insults. A few subtle hypodensities in the supratentorial white matter are nonspecific but ma y reflect chronic microvascular ischemic changes. Sellar/suprasellar mauro on: No abnormalities. Craniocervical junction: Patent foramen magnum. No Chiar i one malformation. Incidental findings: After cirrhotic calcifications in the carotid siphons and left intradural vertebral artery.. IMPRESSION: No acute abnormalities. No changes from the previous head CT of 8. Chronic findings: 1. Mild generalized volume loss. 2. Mild microva scular ischemic changes. Signed by: Dr. Veronica Smith M.D. on 11/26/2017 8: 26 AM Dictated By: VERONICA SMITH MD 5 Transcribed By: SORAYA on 11/26/17825 COPY TO: JAXSON GALINDO MD Urine KVC4551-86-34 08:13:00* Test Item Value Reference Range Interpretation Comments Urine WBC (test code = 5821-4) NONE 0-5 [facility] HospitalUrine MQN6896-19-03 08:13:00* Test Item Value Reference Range Interpretation Comments Urine RBC (test code = 75679-4) NONE 0-5 [facility] HospitalUrine Sicngojn2415-37-27 08:13:00* Test Item Value Reference Range Interpretation Comments Urine Bacteria (test code = 00184-5) NONE NONE [facility] HospitalUrine Epithelial Xhsaw5206-75-84 08:13:00 * Test Item Value Reference Range Interpretation Comments Urine Epithelial Cells (test code = 44458-5) RARE NONE [facility] HospitalUrine IDT1890-09-56 08:13:00* Test Item Value Reference Range Interpretation Comments Urine WBC (test code = 5821-4) NONE 0-5 [facility] HospitalUrine ODQ7451-65-11 08:13:00* Test Item Value Reference Range Interpretation Comments Urine RBC (test code = 92461-4) NONE 0-5 [facility] HospitalUrine Docgpogr8419-28-35 08:13:00* Test Item Value Reference Range Interpretation Comments Urine Bacteria (test code = 55125-9) NONE NONE [facility] HospitalUrine Epithelial Uwktp9768-26-53 08:13:00 * Test Item Value Reference Range Interpretation Comments Urine Epithelial Cells (test code = 94247-2) RARE NONE [facility] HospitalUrine Iguav6302-79-19 07:50:00* Test Item Value Reference Range Interpretation Comments Urine Color (test code = 5778-6) YELLOW YELLOW [facility] HospitalUrine Zfnrcgx1969-55-10 07:50:00* Test Item Value Reference Range Interpretation Comments Urine Clarity (test code = 03159-6) HAZY CLEAR [facility] HospitalUrine Specific Wvqwooh2770-52-32 07:50:00 * Test Item Value Reference Range Interpretation Comments Urine Specific [place] (test code = 5811-5) 1.030 1.010-1.02 5 H [facility] HospitalUrine xX1322-80-82 07:50:00* Test Item Value Reference Range Interpretation Comments Urine pH (test code = 82029-0) 6 5-7 [facility] HospitalU[facility] Leukocyte Yjunyyhd9181-33-82 07:50:00* Test Item Value Reference Range Interpretation Comments Urine Leukocyte Esterase (test code = 5799-2) NEGATIVE NEGATIVE [facility] HospitalUrine Rrsmbst3197-52-16 07:50:00* Test Item Value Reference Range Interpretation Comments Urine Nitrite (test code = 20200-6) NEGATIVE NEGATIVE [facility] HospitalUrine Jgprwyy6472-74-69 07:50:00* Test Item Value Reference Range Interpretation Comments Urine Protein (test code = 5804-0) NEGATIVE NEGATIVE [facility] HospitalUrine Glucose (UA)2017-11-26 07:50:00* Test Item Value Reference Range Interpretation Comments Urine Glucose (UA) (test code = 2349-9) NEGATIVE NEGATIVE [facility] HospitalUrine Weshjsp0959-37-91 07:50:00* Test Item Value Reference Range Interpretation Comments Urine Ketones (test code = 38967-6) NEGATIVE NEGATIVE [facility] HospitalU[facility] Ukaivcostqzo0543-80-69 07:50:00* Test Item Value Reference Range Interpretation Comments Urine Urobilinogen (test code = 30813-2) 0.2 0.2-1 [facility] HospitalU[facility] Mgujtyvxt9588-83-54 07:50:00* Test Item Value Reference Range Interpretation Comments Urine Bilirubin (test code = 1978-6) NEGATIVE NEGATIVE [facility] Mcsbv5350-16-37 07:50:00* Test Item Value Reference Range Interpretation Comments Urine Blood (test code = 58737-2) NEGATIVE NEGATIVE [facility] HospitalU[facility] Obrza7031-42-32 07:50:00* Test Item Value Reference Range Interpretation Comments Urine Color (test code = 5778-6) YELLOW YELLOW [facility] HospitalU[facility] Nyjjmaw6556-26-70 07:50:00* Test Item Value Reference Range Interpretation Comments Urine Clarity (test code = 65426-8) HAZY CLEAR [facility] HospitalU[facility] Specific Jhgnyxx5764-97-31 07:50:00 * Test Item Value Reference Range Interpretation Comments Urine Specific [place] (test code = 5811-5) 1.030 1.010-1.02 5 H [facility] HospitalUrine dP8429-12-63 07:50:00* Test Item Value Reference Range Interpretation Comments Urine pH (test code = 41325-4) 6 5-7 [facility] Leukocyte Mlooamli3510-68-32 07:50:00* Test Item Value Reference Range Interpretation Comments Urine Leukocyte Esterase (test code = 5799-2) NEGATIVE NEGATIVE [facility] Kfglxvv7978-71-88 07:50:00* Test Item Value Reference Range Interpretation Comments Urine Nitrite (test code = 37956-8) NEGATIVE NEGATIVE [facility] HospitalU[facility] Xiahxfc1132-25-50 07:50:00* Test Item Value Reference Range Interpretation Comments Urine Protein (test code = 5804-0) NEGATIVE NEGATIVE [facility] HospitalU[facility] Glucose (UA)2017-11-26 07:50:00* Test Item Value Reference Range Interpretation Comments Urine Glucose (UA) (test code = 2349-9) NEGATIVE NEGATIVE [facility] HospitalUrine Ajzmhsz1288-62-03 07:50:00* Test Item Value Reference Range Interpretation Comments Urine Ketones (test code = 26756-0) NEGATIVE NEGATIVE [facility] HospitalU[facility] Qtwnsvrkjgwb9814-29-32 07:50:00* Test Item Value Reference Range Interpretation Comments Urine Urobilinogen (test code = 71878-3) 0.2 0.2-1 [facility] HospitalU[facility] Rywrwygmx6441-01-60 07:50:00* Test Item Value Reference Range Interpretation Comments Urine Bilirubin (test code = 1978-6) NEGATIVE NEGATIVE [facility] Fbltd1223-04-48 07:50:00* Test Item Value Reference Range Interpretation Comments Urine Blood (test code = 73485-3) NEGATIVE NEGATIVE [facility] Rxauyaw2094-24-44 07:47:00* Test Item Value Reference Range Interpretation Comments Bedside Glucose (test code = 54170-4) 124 70-120 H Meter ID: [id number] Glucose 2017-11-26 07:47:00* Test Item Value Reference Range Interpretation Comments Bedside Glucose (test code = 34370-2) 124 70-120 H Meter ID: [id number] Methodist Sugar [facility] HospitalWhite Blood Count 2017-11-26 07:42:00* Test Item Value Reference Range Interpretation Comments White Blood Count (test code = 6690-2) 6.34 4.8-10.8 [facility] HospitalRed Blood Ukxiw0896-52-51 07:42:00* Test Item Value Reference Range Interpretation Comments Red Blood Count (test code = 789-8) 5.25 4.3-5.7 [facility] HospitalHemoglobin2018-09-28 07:42:00* Test Item Value Reference Range Interpretation Comments Hemoglobin (test code = 00249-8) 14.9 14.0-18.0 [facility] HospitalHematocrit2018-09-28 07:42:00* Test Item Value Reference Range Interpretation Comments Hematocrit (test code = 4544-3) 44.6 38.2-49.6 [facility] HospitalMean Corpuscular Gkcfvl4886-09-29 07:42:00* Test Item Value Reference Range Interpretation Comments Mean Corpuscular Volume (test code = 787-2) 85.0 81-99 [facility] HospitalMean Corpuscular Nbayderhle4085-39-68 07:42:00* Test Item Value Reference Range Interpretation Comments Mean Corpuscular Hemoglobin (test code = 785-6) 28.4 28-32 [facility]Mean Corpuscular Hemoglobin Concent 2017-11-26 07:42:00* Test Item Value Reference Range Interpretation Comments Mean Corpuscular Hemoglobin Concent (test code = 786-4) 33.4 31-35 [facility] HospitalRed Cell Distribution Pxnex6555-38-81 07:42:00* Test Item Value Reference Range Interpretation Comments Red Cell Distribution Width (test code = 63149-3) 13.6 11.7 -14.4 [facility] HospitalPlatelet Tslfc7495-18-97 07:42:00* Test Item Value Reference Range Interpretation Comments Platelet Count (test code = 777-3) 191 140-360 [facility] HospitalNeutrophils (%) (Auto)2017-11-26 07:42:00 * Test Item Value Reference Range Interpretation Comments Neutrophils (%) (Auto) (test code = 19006-2) 71.2 38.7-80.0 [facility] HospitalLymphocytes (%) (Auto)2017-11-26 07:42:00 * Test Item Value Reference Range Interpretation Comments Lymphocytes (%) (Auto) (test code = 736-9) 17.4 18.0-39.1 L [facility] HospitalMonocytes (%) (Auto)2017-11-26 07:42:00* Test Item Value Reference Range Interpretation Comments Monocytes (%) (Auto) (test code = 5905-5) 6.6 4.4-11.3 [facility] HospitalEosinophils (%) (Auto)2017-11-26 07:42:00 * Test Item Value Reference Range Interpretation Comments Eosinophils (%) (Auto) (test code = 713-8) 3.3 0.0-6.0 [facility] HospitalBasophils (%) (Auto)2017-11-26 07:42:00* Test Item Value Reference Range Interpretation Comments Basophils (%) (Auto) (test code = 706-2) 0.6 0.0-1.0 [facility] HospitalIM GRANULOCYTES %2017-11-26 07:42:00* Test Item Value Reference Range Interpretation Comments IM GRANULOCYTES % (test code = IM GRANULOCYTES %) 0.9 0.0- 1.0 [facility] HospitalNeutrophils # (Auto)2017-11-26 07:42:00* Test Item Value Reference Range Interpretation Comments Neutrophils # (Auto) (test code = 751-8) 4.5 2.1-6.9 [facility] HospitalLymphocytes # (Auto)2017-11-26 07:42:00* Test Item Value Reference Range Interpretation Comments Lymphocytes # (Auto) (test code = 78811-5) 1.1 1.0-3.2 [facility] HospitalMonocytes # (Auto)2017-11-26 07:42:00* Test Item Value Reference Range Interpretation Comments Monocytes # (Auto) (test code = 742-7) 0.4 0.2-0.8 [facility] HospitalEosinophils # (Auto)2017-11-26 07:42:00* Test Item Value Reference Range Interpretation Comments Eosinophils # (Auto) (test code = 711-2) 0.2 0.0-0.4 [facility] HospitalBasophils # (Auto)2017-11-26 07:42:00* Test Item Value Reference Range Interpretation Comments Basophils # (Auto) (test code = 704-7) 0.0 0.0-0.1 [facility] HospitalAbsolute Immature Granulocyte (auto 2017-11-26 07:42:00* Test Item Value Reference Range Interpretation Comments Absolute Immature Granulocyte (auto (paul t code = Absolute Immature Granulocyte (auto) 0.06 0-0.1 [facility] HospitalWhite Blood Mtxkr8483-94-07 07:42:00* Test Item Value Reference Range Interpretation Comments White Blood Count (test code = 6690-2) 6.34 4.8-10.8 [facility] HospitalRed Blood Lqxcy6398-52-85 07:42:00* Test Item Value Reference Range Interpretation Comments Red Blood Count (test code = 789-8) 5.25 4.3-5.7 [facility] HospitalHemoglobin2018-09-28 07:42:00* Test Item Value Reference Range Interpretation Comments Hemoglobin (test code = 35905-3) 14.9 14.0-18.0 [facility] HospitalHematocrit2018-09-28 07:42:00* Test Item Value Reference Range Interpretation Comments Hematocrit (test code = 4544-3) 44.6 38.2-49.6 [facility] HospitalMean Corpuscular Tojcin2234-82-91 07:42:00* Test Item Value Reference Range Interpretation Comments Mean Corpuscular Volume (test code = 787-2) 85.0 81-99 [facility] HospitalMean Corpuscular Miseojplno0722-88-64 07:42:00* Test Item Value Reference Range Interpretation Comments Mean Corpuscular Hemoglobin (test code = 785-6) 28.4 28-32 [facility] HospitalMean Corpuscular Hemoglobin Concent 2017-11-26 07:42:00* Test Item Value Reference Range Interpretation Comments Mean Corpuscular Hemoglobin Concent (test code = 786-4) 33.4 31-35 [facility] HospitalRed Cell Distribution Gdmls3534-37-30 07:42:00* Test Item Value Reference Range Interpretation Comments Red Cell Distribution Width (test code = 25362-0) 13.6 11.7 -14.4 [facility] HospitalPlatelet Nlfjo5055-45-68 07:42:00* Test Item Value Reference Range Interpretation Comments Platelet Count (test code = 777-3) 191 140-360 [facility] HospitalNeutrophils (%) (Auto)2017-11-26 07:42:00 * Test Item Value Reference Range Interpretation Comments Neutrophils (%) (Auto) (test code = 00532-8) 71.2 38.7-80.0 [facility] HospitalLymphocytes (%) (Auto)2017-11-26 07:42:00 * Test Item Value Reference Range Interpretation Comments Lymphocytes (%) (Auto) (test code = 736-9) 17.4 18.0-39.1 L [facility] HospitalMonocytes (%) (Auto)2017-11-26 07:42:00* Test Item Value Reference Range Interpretation Comments Monocytes (%) (Auto) (test code = 5905-5) 6.6 4.4-11.3 [facility] HospitalEosinophils (%) (Auto)2017-11-26 07:42:00 * Test Item Value Reference Range Interpretation Comments Eosinophils (%) (Auto) (test code = 713-8) 3.3 0.0-6.0 [facility] HospitalBasophils (%) (Auto)2017-11-26 07:42:00* Test Item Value Reference Range Interpretation Comments Basophils (%) (Auto) (test code = 706-2) 0.6 0.0-1.0 [facility] HospitalIM GRANULOCYTES %2017-11-26 07:42:00* Test Item Value Reference Range Interpretation Comments IM GRANULOCYTES % (test code = IM GRANULOCYTES %) 0.9 0.0- 1.0 [facility] HospitalNeutrophils # (Auto)2017-11-26 07:42:00* Test Item Value Reference Range Interpretation Comments Neutrophils # (Auto) (test code = 751-8) 4.5 2.1-6.9 [facility] HospitalLymphocytes # (Auto)2017-11-26 07:42:00* Test Item Value Reference Range Interpretation Comments Lymphocytes # (Auto) (test code = 76386-8) 1.1 1.0-3.2 [facility] HospitalMonocytes # (Auto)2017-11-26 07:42:00* Test Item Value Reference Range Interpretation Comments Monocytes # (Auto) (test code = 742-7) 0.4 0.2-0.8 [facility] HospitalEosinophils # (Auto)2017-11-26 07:42:00* Test Item Value Reference Range Interpretation Comments Eosinophils # (Auto) (test code = 711-2) 0.2 0.0-0.4 [facility] HospitalBasophils # (Auto)2017-11-26 07:42:00* Test Item Value Reference Range Interpretation Comments Basophils # (Auto) (test code = 704-7) 0.0 0.0-0.1 [facility] HospitalAbsolute Immature Granulocyte (auto 2017-11-26 07:42:00* Test Item Value Reference Range Interpretation Comments Absolute Immature Granulocyte (auto (paul t code = Absolute Immature Granulocyte (auto) 0.06 0-0.1 [facility] HospitalCHEST SINGLE (PORTABLE)2017-11-03 07:38:00 [place] [address] Patient Name: YADIEL DANGELO MR #: [id number] : 1945 Age/Sex: 72/M Req #: [id number] Adm Physician: Ordered by: LUCA EARL MD Report #: [id number] Location: ER Room/Bed: Procedure: DX/CHEST SINGLE (PORT ABLE) Exam Date: 11/03/17 Exam Time: 0648 REPO RT STATUS: Signed PROCEDURE: A single AP view of the chest. COMPARISO N: 04/16/2016. INDICATIONS: DIZZY FINDINGS: The lungs are well-inflated. No focal airspace consolidation, pleural effusion, or pneumot horax. Cardiomediastinal contour is notable for tortuosity of the thoracic ao rta and prominence of the right paratracheal region of the mediastinum, likel y related to great vessel tortuosity. Heart size is normal. No pulmonary april a. No acute osseous abnormalities. Degenerative changes of the shoulder girdles. IMPRESSION: No acute cardiopulmonary abnormality. Dictated by: Veronica Mejia M.D. on 11/03/2017 at 7:38 Electronically approv ed by: Veronica Mejia M.D. on 11/03/2017 at 7:38 Dictated By: VERONICA MEJIA MD 7 Transcr ibed By: GIL on 11/03/1738 COPY TO: LUCA EARL MD CT CERVICAL SPINE [id number] 07:36:00 [place] [id number] Patient Name: YADIEL DANGELO MR #: [id number] : 1945 Age/Sex: 72/M Req #: [id number] Adm Physician: Ordered by: LUCA EARL MD Report #: [id number] Location: ER Room/Bed: Procedure: [id number] CT/CT CERVICAL SPINE WO Exam Date: 11/03/17 Exam Time: 0647 REPORT STATUS: Signed Examination: CT CERVICAL SPINE WITHOUT CONTRAST HISTORY:N edith pain. Trauma. COMPARISON:None. TECHNIQUE: Multidetector helical axial im ages were obtained without contrast from the foramen magnum to T1. Coronal an d sagittal reformatted images were done. Bone and soft tissue windows were viri luated. Dose modulation, iterative reconstruction, and/or weight based adjust ment of the mA/kV was utilized to reduce the radiation dose to as low as reaso nably achievable. FINDINGS: Alignment:Straightening of normal lordos is with grade 1 anterolisthesis of C3 on C4. Vertebrae: Normal height and d ensity. No acute fracture, infection or neoplasm.. Caliber of spinal canal: Developmentally normal. Posterior fossa and craniocervical junction: Forame n magnum patent. No Chiari 1 malformation. Soft tissues: No abnormality. Degenerative changes: Anterior osteophytosis from C4 through C7. Bilate ral facet arthropathy from C2 through C5. Diffuse disc osteophyte complex is f rom C4-C5 through C6-C7 without canal stenosis. Additional findings: None. IMPRESSION: 1. No acute abnormalities. 2. Degenerative ch pearl, as above. Signed by: Dr. Tracie Lundberg M.D. on 11/03/2017 7:37 AM Dictated By: TRACIE ARCE MD 6 Transcribed By: SORAYA on 07/16 COPY TO: LUCA EARL MD CT BRAIN [id number] 07:34:00 [place] [address] Patient Name: YADIEL DANGELO MR #: [id number] : 1945 Age/Sex: 72/M Req #: [id number] Adm Physician: Ordered by: LUCA EARL MD Report #: [id number] Location: ER Room/Bed: Procedure: [id number] CT/CT BRAIN WO Exam Date: 11/03/17 Exam Time: 646 REPORT STATUS: S igned Examination: CT head without contrast Clinical Indication: Dizziness. Trauma. Technique: Transaxial noncontrast images from the skull base through the vertex were obtained. Sagittal and coronal reformatted images were done. Dose modulation, iterative reconstruction, and/or weight based adjustment of the mA/kV was utilized to reduce the radiation dose to as low as reasonably ac hievable. Comparison: April 16, [address] Findings: Scalp: N o abnormalities. Bones: Intact. No fractures. No blastic or lytic lesions. Brain sulci: Mild volume loss for patient's age. Ventricles: No hydrocepha mina. Extra-axial space: No abnormalities. Parenchyma: There are mild confluent areas of low-attenuation within subcortical and periventricular white matter, nonspecific, but could represent microvascular ischemic disease . No masses, hemorrhage, or acute or chronic cortical based vascular insults. Suprasellar region: No abnormalities. Craniocervical junction: The forame n magnum is patent. No Chiari one malformation. Incidental findings: Atherosclerotic calcification of the cavernous and supraclinoid internal carot id and V4 segments of the bilateral vertebral arteries. Impression: 1 . No no acute intracranial finding compare to prior head CT performed 2016. 2. Mild chronic microvascular ischemic change and volume loss. Signed by: Dr. Tracie Lundberg M.D. on 11/03/2017 7:35 AM Dictated By: TRACIE ARCE MD 4 Transcribed By: SORAYA on 11/03/17734 COPY TO: LUCA EARL MD Sodium Egvsw3487-63-72 06:55:00* Test Item Value Reference Range Interpretation Comments Sodium Level (test code = 2951-2) 136 136-145 [facility] HospitalPotassium Chaoh3069-68-99 06:55:00* Test Item Value Reference Range Interpretation Comments Potassium Level (test code = 2823-3) 4.1 3.5-5.1 [facility] HospitalChloride Okvvg4146-02-65 06:55:00* Test Item Value Reference Range Interpretation Comments Chloride Level (test code = 2075-0) 100 98-107 [facility] HospitalCarbon Dioxide Jqnjh8533-18-91 06:55:00* Test Item Value Reference Range Interpretation Comments Carbon Dioxide Level (test code = 2028-9) 28 22-29 [facility] HospitalAnion Rxm2963-28-49 06:55:00* Test Item Value Reference Range Interpretation Comments Anion Gap (test code = 89794-0) 12.1 8-16 [facility] HospitalBlood Urea Pskwpcxi2949-61-21 06:55:00* Test Item Value Reference Range Interpretation Comments Blood Urea Nitrogen (test code = 3094-0) 21 7-26 [facility] HospitalCreatinine2018-09-05 06:55:00* Test Item Value Reference Range Interpretation Comments Creatinine (test code = 2160-0) 0.87 0.72-1.25 [facility] HospitalBUN/Creatinine Ihfel5572-35-73 06:55:00* Test Item Value Reference Range Interpretation Comments BUN/Creatinine Ratio (test code = 3097-3) 24 6-25 [facility] HospitalEstimat Glomerular Filtration Rate 2017-11-03 06:55:00* Test Item Value Reference Range Interpretation Comments Estimat Glomerular Filtration Rate (test code = 48836-7) 60- >60 Ranges were taken from the National Kidney Disease Education Program and the [facility] literature.Reference ranges:60 or greater: Tevoez10-47 ( for 3 consecutive months): Chronic kidney disease 15 or less: Kidney failureHouston [facility] HospitalGlucose Wtkoz6971-81-68 06:55:00* Test Item Value Reference Range Interpretation Comments Glucose Level (test code = BNX7660) 137 74-118 H [facility] HospitalCalcium Ywdcu3164-80-24 06:55:00* Test Item Value Reference Range Interpretation Comments Calcium Level (test code = 44132-3) 9.8 8.4-10.2 [facility] HospitalTotal Ierohxygb9961-94-84 06:55:00* Test Item Value Reference Range Interpretation Comments Total Bilirubin (test code = 1975-2) 0.6 0.2-1.2 [facility] HospitalAspartate Amino Transf (AST/SGOT) 2017-11-03 06:55:00* Test Item Value Reference Range Interpretation Comments Aspartate Amino Transf (AST/SGOT) (test code = Aspartate Amino Transf (AST/SGOT)) 20 5-34 [facility] HospitalAlanine Aminotransferase (ALT/SGPT) 2017-11-03 06:55:00* Test Item Value Reference Range Interpretation Comments Alanine Aminotransferase (ALT/SGPT) (test code = 1742-6) 14 0-55 [facility] HospitalTotal Qwtomnp5958-60-41 06:55:00* Test Item Value Reference Range Interpretation Comments Total Protein (test code = 2885-2) 7.2 6.5-8.1 [facility] HospitalAlbumin2018-09-05 06:55:00* Test Item Value Reference Range Interpretation Comments Albumin (test code = 1751-7) 4.1 3.5-5.0 [facility] HospitalGlobulin2018-09-05 06:55:00* Test Item Value Reference Range Interpretation Comments Globulin (test code = 60526-9) 3.1 2.3-3.5 [facility] HospitalAlbumin/Globulin Qposx6400-00-35 06:55:00 * Test Item Value Reference Range Interpretation Comments Albumin/Globulin Ratio (test code = 1759-0) 1.3 0.8-2.0 [facility] HospitalAlkaline Opuxqgamrwl1868-19-85 06:55:00* Test Item Value Reference Range Interpretation Comments Alkaline Phosphatase (test code = 6768-6) 96 40-150 [facility] HospitalCreatine Reftxn3094-36-42 06:55:00* Test Item Value Reference Range Interpretation Comments Creatine Kinase (test code = 2157-6) 56 30-200 [facility] HospitalCreatine Kinase QN9417-43-00 06:55:00* Test Item Value Reference Range Interpretation Comments Creatine Kinase MB (test code = 29683-5) 3.80 0-5.0 [facility] HospitalTroponin [id number] 06:55:00* Test Item Value Reference Range Interpretation Comments Troponin I (test code = KVN0934) 0.004 0-0.300 [facility] HospitalProthrombin Svku0327-88-38 06:38:00* Test Item Value Reference Range Interpretation Comments Prothrombin Time (test code = 5902-2) 13.0 11.9-14.5 [facility] HospitalProthromb Time International Ratio 2017-11-03 06:38:00* Test Item Value Reference Range Interpretation Comments Prothromb Time International Ratio (test code = 6301-6) 1.06 Oral Anticoagulant Therapy INR Values:1. Low Intensity Therapy 1.5 - 2.02 . Moderate Intensity Therapy 2.0 - 3.03. High Intensity Therapy(1) 2.5 - 3. 54. High Intensity Therapy(2) 3.0 - 4.05. Panic Value INR > 5.0 [facility] HospitalActivated Partial Thromboplast Time 2017-11-03 06:38:00* Test Item Value Reference Range Interpretation Comments Activated Partial Thromboplast Time (test code = 71094-6) 33.5 23.8-35.5 [facility] HospitalProthrombin Vbit4637-64-26 06:38:00* Test Item Value Reference Range Interpretation Comments Prothrombin Time (test code = 5902-2) 13.0 11.9-14.5 [facility] HospitalProthromb Time International Ratio 2017-11-03 06:38:00* Test Item Value Reference Range Interpretation Comments Prothromb Time International Ratio (test code = 6301-6) 1.06 Oral Anticoagulant Therapy INR Values:1. Low Intensity Therapy 1.5 - 2.02 . Moderate Intensity Therapy 2.0 - 3.03. High Intensity Therapy(1) 2.5 - 3. 54. High Intensity Therapy(2) 3.0 - 4.05. Panic Value INR > 5.0 [facility] HospitalActivated Partial Thromboplast Time 2017-11-03 06:38:00* Test Item Value Reference Range Interpretation Comments Activated Partial Thromboplast Time (test code = 59167-8) 33.5 23.8-35.5 [facility] HospitalProthrombin Srrv3426-33-48 06:38:00* Test Item Value Reference Range Interpretation Comments Prothrombin Time (test code = 5902-2) 13.0 11.9-14.5 [facility] HospitalProthromb Time International Ratio 2017-11-03 06:38:00* Test Item Value Reference Range Interpretation Comments Prothromb Time International Ratio (test code = 6301-6) 1.06 Oral Anticoagulant Therapy INR Values:1. Low Intensity Therapy 1.5 - 2.02 . Moderate Intensity Therapy 2.0 - 3.03. High Intensity Therapy(1) 2.5 - 3. 54. High Intensity Therapy(2) 3.0 - 4.05. Panic Value INR > 5.0 [facility] HospitalActivated Partial Thromboplast Time 2017-11-03 06:38:00* Test Item Value Reference Range Interpretation Comments Activated Partial Thromboplast Time (test code = 31073-1) 33.5 23.8-35.5 [facility] HospitalWhite Blood Wzcxj8235-18-68 06:28:00* Test Item Value Reference Range Interpretation Comments White Blood Count (test code = 6690-2) 6.37 4.8-10.8 [facility] HospitalRed Blood Qejde3925-65-74 06:28:00* Test Item Value Reference Range Interpretation Comments Red Blood Count (test code = 789-8) 5.48 4.3-5.7 [facility] HospitalHemoglobin2018-09-05 06:28:00* Test Item Value Reference Range Interpretation Comments Hemoglobin (test code = 16831-5) 15.6 14.0-18.0 [facility] HospitalHematocrit2018-09-05 06:28:00* Test Item Value Reference Range Interpretation Comments Hematocrit (test code = 4544-3) 46.4 38.2-49.6 [facility] HospitalMean Corpuscular Ewmetc9236-48-59 06:28:00* Test Item Value Reference Range Interpretation Comments Mean Corpuscular Volume (test code = 787-2) 84.7 81-99 [facility] HospitalMean Corpuscular Ufqrqievum2017-86-83 06:28:00* Test Item Value Reference Range Interpretation Comments Mean Corpuscular Hemoglobin (test code = 785-6) 28.5 28-32 [facility] HospitalMean Corpuscular Hemoglobin Concent 2017-11-03 06:28:00* Test Item Value Reference Range Interpretation Comments Mean Corpuscular Hemoglobin Concent (test code = 786-4) 33.6 31-35 [facility] HospitalRed Cell Distribution Zzzek7076-61-51 06:28:00* Test Item Value Reference Range Interpretation Comments Red Cell Distribution Width (test code = 21240-1) 13.4 11.7 -14.4 [facility] HospitalPlatelet Uxaac8845-62-96 06:28:00* Test Item Value Reference Range Interpretation Comments Platelet Count (test code = 777-3) 197 140-360 [facility] HospitalNeutrophils (%) (Auto)2017-11-03 06:28:00 * Test Item Value Reference Range Interpretation Comments Neutrophils (%) (Auto) (test code = 76974-7) 67.6 38.7-80.0 [facility] HospitalLymphocytes (%) (Auto)2017-11-03 06:28:00 * Test Item Value Reference Range Interpretation Comments Lymphocytes (%) (Auto) (test code = 736-9) 20.7 18.0-39.1 [facility] HospitalMonocytes (%) (Auto)2017-11-03 06:28:00* Test Item Value Reference Range Interpretation Comments Monocytes (%) (Auto) (test code = 5905-5) 7.1 4.4-11.3 [facility] HospitalEosinophils (%) (Auto)2017-11-03 06:28:00 * Test Item Value Reference Range Interpretation Comments Eosinophils (%) (Auto) (test code = 713-8) 3.5 0.0-6.0 [facility] HospitalBasophils (%) (Auto)2017-11-03 06:28:00* Test Item Value Reference Range Interpretation Comments Basophils (%) (Auto) (test code = 706-2) 0.5 0.0-1.0 [facility] HospitalIM GRANULOCYTES %2017-11-03 06:28:00* Test Item Value Reference Range Interpretation Comments IM GRANULOCYTES % (test code = IM GRANULOCYTES %) 0.6 0.0- 1.0 [facility] HospitalNeutrophils # (Auto)2017-11-03 06:28:00* Test Item Value Reference Range Interpretation Comments Neutrophils # (Auto) (test code = 751-8) 4.3 2.1-6.9 [facility] HospitalLymphocytes # (Auto)2017-11-03 06:28:00* Test Item Value Reference Range Interpretation Comments Lymphocytes # (Auto) (test code = 26675-8) 1.3 1.0-3.2 [facility] HospitalMonocytes # (Auto)2017-11-03 06:28:00* Test Item Value Reference Range Interpretation Comments Monocytes # (Auto) (test code = 742-7) 0.5 0.2-0.8 [facility] HospitalEosinophils # (Auto)2017-11-03 06:28:00* Test Item Value Reference Range Interpretation Comments Eosinophils # (Auto) (test code = 711-2) 0.2 0.0-0.4 [facility] HospitalBasophils # (Auto)2017-11-03 06:28:00* Test Item Value Reference Range Interpretation Comments Basophils # (Auto) (test code = 704-7) 0.0 0.0-0.1 [facility] HospitalAbsolute Immature Granulocyte (auto 2017-11-03 06:28:00* Test Item Value Reference Range Interpretation Comments Absolute Immature Granulocyte (auto (paul t code = Absolute Immature Granulocyte (auto) 0.04 0-0.1 [facility]
== END 2020-01-02 10:50 | disposition home or self-care (01) ==
LOC: ER 10:42
DX: S51.812A Laceration without foreign body of left forearm, initial encounter (principal); W22.09XA Striking against other stationary object, initial encounter; Y92.008 Other place in unspecified non-institutional (private) residence as the place of occurrence of the external cause; I10 Essential (primary) hypertension; J44.9 Chronic obstructive pulmonary disease, unspecified; E03.9 Hypothyroidism, unspecified; Z95.810 Presence of automatic (implantable) cardiac defibrillator; Z85.46 Personal history of malignant neoplasm of prostate
CPT/HCPCS: 99282

== ENCOUNTER 2021-02-10 09:12 | Emergency (ER) | payer MEDICARE ==
[~2021-02-10] VITALS: Ht 175.3 cm; Wt 84.4 kg
[2021-02-10] MEDS ORDERED: SODIUM CHLORIDE 0.9% 1000ML 1,000 ML IV ONE (09:30)
[2021-02-10 09:47] LABS: BASOPHILS # (AUTO) 0.1 (0.0-0.1); BASOPHILS % 0.7 % (0.0-1.0); EOSINOPHILS # (AUTO) 0.1 (0.0-0.4); EOSINOPHILS % 1.9 % (0.0-6.0); HEMATOCRIT 45.5 % (38.2-49.6); HEMOGLOBIN 14.8 g/dL (14.0-18.0); LYMPHOCYTES # (AUTO) 1.3 (1.0-3.2); LYMPHOCYTES % 17.2 % (18.0-39.1); MEAN CORPUSCULAR HEMOGLOBIN 28.6 pg (28-32); MEAN CORPUSCULAR HGB CONC 32.5 g/dL (31-35); MEAN CORPUSCULAR VOLUME 87.8 fL (81-99); MONOCYTES # (AUTO) 0.4 (0.2-0.8); MONOCYTES % 4.7 % (4.4-11.3); NEUTROPHILS # (AUTO) 5.6 (2.1-6.9); NEUTROPHILS % 75.1 % (38.7-80.0); PLATELET COUNT 223 x10e3/uL (140-360); RED BLOOD COUNT 5.18 x10e6/uL (4.3-5.7); RED CELL DISTRIBUTION WIDTH 13.7 % (11.7-14.4)
[2021-02-10 10:08] LABS: ANION GAP 12.9 mmol/L (8-16); CALCIUM 9.3 mg/dL (8.4-10.2); CREATININE, SERUM 0.8 mg/dL (0.72-1.25); POTASSIUM 3.9 mmol/L (3.5-5.1)
[2021-02-10 10:39] LABS: CLARITY,URINE SL CLOUDY (CLEAR); COLOR,URINE YELLOW (YELLOW); KETONES,URINE NEGATIVE (NEGATIVE); LEUKOCYTE ESTERASE ,URINE NEGATIVE (NEGATIVE); NITRITE,URINE NEGATIVE (NEGATIVE); PROTEIN,URINE DIPSTICK NEGATIVE (NEGATIVE)
[2021-02-10 10:40] LABS: URINE UROBILINOGEN 1 mg/dL (0.2 - 1)
[2021-02-10 10:51] LABS: BACTERIA,URINE FEW /HPF; EPITHELIAL CELLS,URINE FEW /LPF; MUCUS,URINE MANY (RARE); RBC,URINE 0-5 /HPF (0-5); WBC,URINE (MAN) 0-5 /HPF (0-5)
[2021-02-10] MEDS ORDERED: MECLIZINE HCL12.5 MG PO (11:07)
[2021-02-10 11:31] VITALS: BP 148/78
== END 2021-02-10 11:33 | disposition home or self-care (01) ==
LOC: ER 09:22
DX: R42 Dizziness and giddiness (principal); I10 Essential (primary) hypertension; J44.9 Chronic obstructive pulmonary disease, unspecified; E03.9 Hypothyroidism, unspecified; Z95.810 Presence of automatic (implantable) cardiac defibrillator; Z85.89 Personal history of malignant neoplasm of other organs and systems; R94.31 Abnormal electrocardiogram [ECG] [EKG]
CPT/HCPCS: 36415; 70450; 71045; 80048; 81001; 84484; 85025; 93005; 99284; J7030

== ENCOUNTER 2021-02-16 10:31 | Emergency (ER) | payer MEDICARE ==
[~2021-02-16] VITALS: Ht 175.3 cm; Wt 84.4 kg
== END 2021-02-16 12:44 | disposition home or self-care (01) ==
LOC: ER 11:04
DX: R42 Dizziness and giddiness (principal); I10 Essential (primary) hypertension; J44.9 Chronic obstructive pulmonary disease, unspecified; E03.9 Hypothyroidism, unspecified; Z95.810 Presence of automatic (implantable) cardiac defibrillator; Z85.89 Personal history of malignant neoplasm of other organs and systems
CPT/HCPCS: 99282